=== PATIENT | female | born 1990 | race Caucasian/White ===

== ENCOUNTER 2017-05-20 00:50 | Inpatient (IN) | payer BC, MEDICAID ==
--- NOTE | 2017-05-20 02:14 | ER Document Report ---
ED Medical Screen (RME) - General Chief Complaint: Foot Pain Stated Complaint: FOOT RASH Time Seen by Provider: 05/20/17 02:10 Mode of Arrival: Ambulatory Information source: Patient Notes: 27-year-old female presented to ED for pain redness swelling to the right foot. She states she was seen Friday and diagnosed with a cellulitis to the right foot. She was sent home on . She states the redness swelling and pain has all increased since Friday. She states her blood sugars have been reading high since Friday. She has a small ulcer to the lateral fifth toe with erythema. She has erythema up to the knee. Pedal pulses are present. I have greeted and performed a rapid initial assessment of this patient. A comprehensive ED assessment and evaluation of the patient, analysis of test results and completion of medical decision making process will be conducted by an additional ED providers. TRAVEL OUTSIDE OF THE [place] IN LAST 30 DAYS: No
[2017-05-20 02:49] LABS: VENOUS BLOOD BASE EXCESS 1.9 mmol/L; VENOUS BLOOD HCO3 30.8 mmol/L (20-32); VENOUS BLOOD PH 7.26 (7.30-7.42)
[2017-05-20 02:50] LABS: ABSOLUTE BASOPHILS # (AUTO) 0.1 10^3/uL (0.0-0.2); ABSOLUTE EOSINOPHILS # (AUTO) 0.7 10^3/uL (0.0-0.6); ABSOLUTE LYMPHOCYTES (AUTO) 3.5 10^3/uL (0.5-4.7); ABSOLUTE MONOCYTES (AUTO) 0.7 10^3/uL (0.1-1.4); ABSOLUTE NEUT (AUTO) 4.4 10^3/uL (1.7-8.2); BASOPHILS % (AUTO) 0.7 % (0-2); EOSINOPHILS % (AUTO) 7.2 % (0-6); HEMATOCRIT 41.2 % (36.0-47.0); HEMOGLOBIN 13.7 g/dL (12.0-15.5); LYMPHOCYTES % (AUTO) 37.8 % (13-45); MEAN CORPUSCULAR HEMOGLOBIN 27.6 pg (27.0-33.4); MEAN CORPUSCULAR HGB CONC 33.2 g/dL (32.0-36.0); MEAN CORPUSCULAR VOLUME 83 fl (80-97); MONOCYTES % (AUTO) 7.2 % (3-13); PLATELET COUNT 361 10^3/uL (150-450); RED BLOOD COUNT 4.95 10^6/uL (3.72-5.28); RED CELL DISTRIBUTION WIDTH 13.1 % (11.5-14.0); SEGMENTED NEUTROPHILS % (AUTO) 47.1 % (42-78); TOTAL CELLS COUNTED % (AUTO) 100 %; WHITE BLOOD COUNT 9.3 10^3/uL (4.0-10.5)
[2017-05-20 03:14] LABS: ALANINE AMINOTRANSFERASE 34 U/L (9-52); ALBUMIN 4.3 g/dL (3.5-5.0); ALKALINE PHOSPHATASE 130 U/L (38-126); ANION GAP 14 (5-19); ASPARTATE AMINO TRANSFERASE 13 U/L (14-36); BILIRUBIN,DIRECT 0.2 mg/dL (0.0-0.4); BILIRUBIN,TOTAL 0.2 mg/dL (0.2-1.3); BLOOD UREA NITROGEN 15 mg/dL (7-20); CALCIUM 10.3 mg/dL (8.4-10.2); CARBON DIOXIDE 29 mmol/L (22-30); CHLORIDE 100 mmol/L (98-107); GLUCOSE 150 mg/dL (75-110); SODIUM 143.1 mmol/L (137-145); TOTAL PROTEIN 7.4 g/dL (6.3-8.2)
[2017-05-20 03:15] LABS: VENOUS BLOOD PCO2 69.7 mmHg (35-63)
--- NOTE | 2017-05-20 03:57 | RADIOLOGY REPORT (SQ) ---
EXAM DESCRIPTION: FOOT RIGHT COMPLETE CLINICAL HISTORY: ulcer to right 5th toe diabetic cellulitis COMPARISON: None. FINDINGS: 3 views of the right foot. No acute fracture or dislocation. Normal osseous mineralization. Small lytic lesion arising at the lateral aspect of the fifth distal phalanx. Mild soft tissue swelling. No subcutaneous air. IMPRESSION: 1. Possible lytic lesion arising at the lateral aspect of the fifth distal phalanx. This could be seen with osteomyelitis. Correlation with contrast-enhanced MRI could provide additional information.
[2017-05-20] MEDS ORDERED: MORPHINE SULFATE 10 MG/ML INJ IV ONE (04:06)
[2017-05-20] MEDS ORDERED: CLINDAMYCIN 900 MG/D5W RTU 50 ML IV ONE (04:06)
[2017-05-20] MEDS ORDERED: HYDROMORPHONE HCL INJ/PF 2 MG/ML AMPULE IV ONE (04:53)
--- NOTE | 2017-05-20 05:21 | ER Document Report ---
ED General - General Chief Complaint: Foot Pain Stated Complaint: FOOT RASH Time Seen by Provider: 05/20/17 02:10 Mode of Arrival: Ambulatory Information source: Patient Notes: 27-year-old female presents with complaints of foot swelling redness. Patient is a diabetic had a cut versus ulcer to the right foot fifth digit was seen at [facility] emergency department where she was placed on Bactrim 4 days ago, patient has been taking her medications as prescribed, notes that the swelling has since worsened. TRAVEL OUTSIDE OF THE [place] IN LAST 30 DAYS: No - HPI Onset: Other Onset/Duration: Persistent Quality of pain: Pressure Severity: Mild Pain Level: 2 Associated symptoms: Leg swelling Exacerbated by: Movement Relieved by: Denies Similar symptoms previously: Yes Recently seen / treated by doctor: Yes - Related Data Allergies/Adverse Reactions: No Known Allergies Allergy (Unverified 05/20/17 05:58) Past Medical History - General Information source: Patient - Social History Smoking Status: Current Every Day Smoker Cigarette use (# per day): Yes Chew tobacco use (# tins/day): No Smoking Education Provided: No Family History: Reviewed & Not Pertinent Review of Systems - Review of Systems Notes: REVIEW OF SYSTEMS: CONSTITUTIONAL : Denies fever, chills, or sweats. Denies recent illness. EENT: Denies eye, ear, throat, or mouth pain or symptoms. Denies nasal or sinus congestion or discharge. Denies throat, tongue, or mouth swelling or difficulty swallowing. CARDIOVASCULAR: Denies chest pain. Denies palpitations or racing or irregular heart beat. Denies ankle edema. RESPIRATORY: Denies cough, cold, or chest congestion. Denies shortness of breath, difficulty breathing, or wheezing. GASTROINTESTINAL: Denies abdominal pain or distention. Denies nausea, vomiting , or diarrhea. Denies blood in vomitus, stools, or per rectum. Denies black, tarry stools. Denies constipation. GENITOURINARY: Denies difficulty urinating, painful urination, burning, frequency, blood in urine, or discharge. FEMALE GENITOURINARY: Denies vaginal bleeding, heavy or abnormal periods, irregular periods. Denies vaginal discharge or odor. MUSCULOSKELETAL: Denies back or neck pain or stiffness. Denies joint pain or swelling. SKIN: Admits to redness of the foot HEMATOLOGIC : Denies easy bruising or bleeding. LYMPHATIC: Denies swollen, enlarged glands. NEUROLOGICAL: Denies confusion or altered mental status. Denies passing out or loss of consciousness. Denies dizziness or lightheadedness. Denies headache. Denies weakness or paralysis or loss of use of either side. Denies problems with gait or speech. Denies sensory loss, numbness, or tingling. Denies seizures. PSYCHIATRIC: Denies anxiety or stress. Denies depression, suicidal ideation, or homicidal ideation. ALL OTHER SYSTEMS REVIEWED AND NEGATIVE. PHYSICAL EXAMINATION: GENERAL: Well-appearing, well-nourished and in no acute distress. HEAD: Atraumatic, normocephalic. EYES: Pupils equal round and reactive to light, extraocular movements intact, conjunctiva are normal. ENT: Nares patent, oropharynx clear without exudates. Moist mucous membranes. NECK: Normal range of motion, supple without lymphadenopathy LUNGS: Breath sounds clear to auscultation bilaterally and equal. No wheezes rales or rhonchi. HEART: Regular rate and rhythm without murmurs ABDOMEN: Soft, nontender, nondistended abdomen. No guarding, no rebound. No masses appreciated. Female : deferred Musculoskeletal: Right foot edema NEUROLOGICAL: Cranial nerves grossly intact. Normal speech, normal gait. Normal sensory, motor exams PSYCH: Normal mood, normal affect. SKIN: Edema of the right foot with ulceration of the fifth digit dorsal aspect concerning for osteomyelitis, there is streaking as well as swelling to the mid neumann. There is an ingrown toenail on the first digit Dictation was performed using [employer] voice recognition software Physical Exam - Vital signs Vitals: Temp Pulse Resp BP Pulse Ox 97.6 F 113 H 12 135/81 H 97 05/20/17 00:54 05/20/17 00:54 05/20/17 00:54 05/20/17 00:54 05/20/17 00:54 Course - Re-evaluation Re-evalutation: 05/20/17 06:39 X-rays concerning for osteomyelitis, patient has had failed outpatient treatment and will require inpatient IV antibiotics and care Dr. Linaress was consulted for admission, he evaluated patient agrees with concerns for osteomyelitis, he will admit to his service antibiotics have been started he will consult medicine, I spoke with Dr. Roque regarding medical management - Vital Signs Vital signs: Temp Pulse Resp BP Pulse Ox 97.5 F 89 16 95/51 L 95 02/06/18 06:21 05/20/17 06:21 05/20/17 06:21 05/20/17 06:21 05/20/17 06:21 - Laboratory Result Diagrams: 05/20/17 02:30 05/20/17 02:30 Laboratory results interpreted by me: 05/20/17 05/20/17 05/20/17 02:30 02:30 02:30 Eosinophils % 7.2 H Absolute Eosinophils 0.7 H VBG pH 7.26 L VBG pCO2 69.7 H* Glucose 150 H Calcium 10.3 H AST 13 L Alkaline Phosphatase 130 H - Diagnostic Test Radiology reviewed: Image reviewed, Reports reviewed - Osteomyelitis Discharge - Discharge Clinical Impression: Cellulitis Qualifiers: Site of cellulitis: extremity Site of cellulitis of extremity: lower extremity Laterality: right Qualified Code(s): L03.115 - Cellulitis of right lower limb Osteomyelitis Qualifiers: Osteomyelitis type: unspecified type Osteomyelitis location: foot Laterality: right Qualified Code(s): M86.9 - Osteomyelitis, unspecified Condition: Stable Disposition: ADMITTED INPATIENT Admitting Provider: Surgicalist Unit Admitted: Medical Floor
[2017-05-20] MEDS ORDERED: DEXTROSE 50%-WATER 25 GM/50 ML DISP.SYRIN IV PRN ×2 (05:26)
[2017-05-20] MEDS ORDERED: GLUCAGON,HUMAN RECOMB 1 MG INJ IM PRN (05:26)
[2017-05-20] MEDS ORDERED: DEXTROSE 40% GEL 15 GM TUBE PO PRN ×2 (05:26)
--- NOTE | 2017-05-20 06:38 | CONSULTATION REPORT E ---
History and physical document NAME: RAGHAVENDRA PEREZ : 1990 AGE: 27Y DATE: 05/20/2017 ED20 A Patient seen in the consultation Dr. Owens. CHIEF COMPLAINT: Right foot infection. REPORT OF CONSULTATION: The patient is a 27-year-old white female with a several year history of diabetes mellitus, sees Dr. Slaughter in [facility], history of noncompliance, with a several month history of problems with her right foot. She has what she states is an ingrown toenail involving the right great toe; several weeks ago she noted swelling and redness to the right fifth toe. She was seen at an outpatient facility where she was assessed and found to have infection involving her right fifth toe and was started on Bactrim. Because of persistent swelling to her foot and leg, she was brought by the emergency department at [facility] where she was found to have cellulitis of the right foot and leg, with superficial wounds to the right fifth toe, and swelling of the right great toe. Surgery was consulted. The patient was advised admission. PAST MEDICAL HISTORY: Significant for: 1. Diabetes mellitus. 2. Smoking abuse. PAST SURIGCAL HISTORY: Significant for right humerus fracture ORIF, Ned Drake. ALLERGIES: None known. MEDICATIONS: Include insulin. FAMILY HISTORY: The patient does smoke; lives with mother and daughter. She is unemployed. REVIEW OF SYSTEMS: CONSTITUTIONAL: The patient denies. CARDIOVASCULAR: The patient denies. GASTROINTESTINAL: The patient denies. ADVERTISING INTERNSHIP: The patient denies. NEUROLOGIC: The patient does have peripheral neuropathy in her feet. PHYSICAL EXAMINATION: VITAL SIGNS: Stable. GENERAL: Patient in no acute distress. HEENT: Facial piercings. NECK: No adenopathy. LUNGS: Diminished in the bases bilaterally. HEART: Without murmur or gallop. ABDOMEN: Soft. No peritoneal signs. No rigidity. EXTREMITIES: Upper extremity is without deformity, grossly intact motor pineda. Lower extremity is examined, +2 edema on the right side. I cannot palpate pulses in the feet. The feet are warm. There is generalized splotchy erythema to the right lower extremity ankle and forefoot. Right great toe both medial and lateral aspects of the toenail there is some erythema. There are small skin breaks right at the nail plate. There is evidence of Betadine treatment creating a discoloration to the skin. The right fifth toe lateral aspect has chronic callus. It is dry. Range of motion of the toes appear preserved. LABORATORY PROFILE: CBC within normal limits. Electrolytes within normal limits except for blood sugar of 150, Alk phos of 130. Right foot x-rays 3 views performed. There is evidence of a possible lytic lesion to the distal right fifth middle phalanx. IMPRESSION: 1. Right foot cellulitis with early right great toe paronychia, low grade, and chronic diabetic right fifth toe ulcer, dry, with possible underlying osteomyelitis. 2. Uncontrolled noncompliant diabetes mellitus. 3. Smoker. RECOMMENDATIONS: Patient needs admission to the hospital, IV fluids, leg elevation, and consideration for MRI scan of the right lower extremity . We will consult internal medicine for assistance with diabetes management. DICTATING PHYSICIAN: NGA SANCHES M.D. [id number] PHY#: [id number] ID: [id number] JOB#: [id number] ACCT: [id number] cc:NGA SANCHES M.D. > MTDD
--- NOTE | 2017-05-20 13:50 | PDOC CONSULTATION ---
Consultation Consult Date: 05/20/17 Attending physician:: NGA SANCHES Consult reason:: Medical Management History of Present Illness Admission Date/PCP: 05/20/17 05:26 JAQUAN ALY DO Patient complains of: Right Great toe History of Present Illness: RAGHAVENDRA PEREZ is a 27 year old female presents to the ER with complaint of right great toe infection. Hospitalist team was contacted for consult of DM Type 1 management. Pt stats that she is doing ok. Pt states that her right toe redness for been present for several weeks. Pt states that it has not gotten better. Pt states that she Carb counts prior to administering insulin and placed on Lantus. Past Medical History Cardiac Medical History: Reports: None Pulmonary Medical History: Reports: None EENT Medical History: Reports: None Neurological Medical History: Reports: None Endocrine Medical History: Reports: Diabetes Mellitus Type 1 Renal/ Medical History: Reports: None Malignancy Medical History: Reports: None GI Medical History: Reports: None Musculoskeltal Medical History: Reports: None Skin Medical History: Reports: None Psychiatric Medical History: Denies: Depression Traumatic Medical History: Reports: None Hematology: Reports: None Infectious Medical History: Reports: None Past Surgical History Past Surgical History: Reports: Other - Surgery on Right arm due to Fracture. Social History Smoking Status: Current Every Day Smoker Cigarettes Packs Per Day: 1 Frequency of Alcohol Use: None Hx Recreational Drug Use: Yes - quit 2012 Drugs: Other Hx Prescription Drug Abuse: No - Advance Directive Resuscitation Status: Full Code Family History Family History: DM Parental Family History Reviewed: Yes Children Family History Reviewed: Yes Sibling(s) Family History Reviewed.: Yes Medication/Allergy Home Medications: Insulin Aspart [Novolog Insulin (Aspart) 100 unit/mL] See Protocol SQ MEALS 09/29 Insulin Glargine,Hum.rec.anlog [Lantus Insulin 100 Unit/1 ml 10 ml] 36 units SQ QHS 05/20/17 Allergies/Adverse Reactions: No Known Allergies Allergy (Unverified 05/20/17 05:58) Review of Systems Constitutional: ABSENT: chills, fever(s), headache(s), weight gain, weight loss Eyes: ABSENT: visual disturbances Ears: ABSENT: hearing changes Cardiovascular: ABSENT: chest pain, dyspnea on exertion, edema, orthropnea, palpitations Genitourinary: ABSENT: dysuria, hematuria Musculoskeletal: ABSENT: joint swelling Integumentary: PRESENT: other - Right great toe erythema Neurological: ABSENT: abnormal gait, abnormal speech, confusion, dizziness, focal weakness, syncope Psychiatric: ABSENT: anxiety, depression, homidical ideation, suicidal ideation Endocrine: ABSENT: cold intolerance, heat intolerance, polydipsia, polyuria Hematologic/Lymphatic: ABSENT: easy bleeding, easy bruising Physical Exam Vital Signs: Temp Pulse Resp BP Pulse Ox 97.9 F 88 15 99/53 L 96 05/20/17 11:31 05/20/17 11:31 05/20/17 11:31 05/20/17 11:31 05/20/17 11:31 Intake & Output 05/19/17 05/20/17 05/21/17 06:59 06:59 06:59 Weight 68.1 kg General appearance: PRESENT: no acute distress, well-developed, well-nourished Head exam: PRESENT: atraumatic, normocephalic Eye exam: PRESENT: conjunctiva pink, EOMI Ear exam: PRESENT: normal external ear exam Mouth exam: PRESENT: moist, tongue midline Neck exam: ABSENT: carotid bruit, JVD, lymphadenopathy, thyromegaly Respiratory exam: PRESENT: clear to auscultation jey. ABSENT: rales, rhonchi, wheezes Cardiovascular exam: PRESENT: RRR. ABSENT: diastolic murmur, rubs, systolic murmur Pulses: PRESENT: normal dorsalis pedis pul Vascular exam: PRESENT: normal capillary refill GI/Abdominal exam: PRESENT: normal bowel sounds, soft. ABSENT: distended, guarding, mass, organolmegaly, rebound, tenderness Rectal exam: PRESENT: deferred Extremities exam: PRESENT: full ROM. ABSENT: calf tenderness, clubbing, pedal edema Neurological exam: PRESENT: alert, awake, oriented to person, oriented to place , oriented to time, oriented to situation, CN II-XII grossly intact. ABSENT: motor sensory deficit Psychiatric exam: PRESENT: appropriate affect, normal mood. ABSENT: homicidal ideation, suicidal ideation Skin exam: PRESENT: other - right great toe erythema no purulent drainage noted. Results Impressions: Foot X-Ray 05/20/17 02:10 IMPRESSION: 1. Possible lytic lesion arising at the lateral aspect of the fifth distal phalanx. This could be seen with osteomyelitis. Correlation with contrast-enhanced MRI could provide additional information. Assessment & Plan - Diagnosis (1) Paronychia Is this a current diagnosis for this admission?: Yes Plan: Right Great Toe: Agree with Clindamycin. Per Surgery (2) Tobacco dependence Is this a current diagnosis for this admission?: Yes Plan: Encourage discontinuation of tobacco products. (3) Cellulitis Qualifiers: Site of cellulitis: extremity Site of cellulitis of extremity: lower extremity Laterality: right Qualified Code(s): L03.115 - Cellulitis of right lower limb Is this a current diagnosis for this admission?: Yes Plan: Right Great Toe: Continue Clindamycin. (4) DM type 1 (diabetes mellitus, type 1) Is this a current diagnosis for this admission?: Yes Plan: Will check HBG A1C. Will continue SSI and Lantus. Accucheck Qmeals. (5) DVT prophylaxis Is this a current diagnosis for this admission?: Yes Plan: SCDs - Time Time Spent: 30 to 50 Minutes Anticipated discharge: Home
[2017-05-20] MEDS: CLINDAMYCIN 600 MG/D5W RTU 600 MG/50 ML RTUPB IV SCH ×2 (14:06→21:47)
[2017-05-20] MEDS: INSULIN REG, HUMAN 100 UNIT/ML 3 ML VIAL (PYX) SUBCUT PRN ×2 (14:06→18:02)
[2017-05-20] MEDS: NORMAL SALINE 1000 ML 1,000 ML IV PRN ×2 (14:06→23:25)
[2017-05-20 16:34] LABS: APPEARANCE,URINE SLIGHTLY-CLOUDY; BILIRUBIN,URINE NEGATIVE (NEGATIVE); COLOR,URINE YELLOW; GLUCOSE, URINE >=500 mg/dL (NEGATIVE); KETONES,URINE NEGATIVE (NEGATIVE); LEUKOCYTE ESTERASE,URINE TRACE (NEGATIVE); NITRITE,URINE NEGATIVE (NEGATIVE); PROTEIN,URINE NEGATIVE (NEGATIVE); URINE SPECIFIC GRAVITY 1.018; UROBILINOGEN,URINE NEGATIVE mg/dL (<2.0)
--- NOTE | 2017-05-20 20:04 | RADIOLOGY REPORT (SQ) ---
EXAM DESCRIPTION: MRI RT LOWER EXTREMITY WITHOUT COMPLETED DATE/TIME: 05/20/2017 7:50 pm REASON FOR STUDY: r/o osteo right fifth toe COMPARISON: Plain radiograph TECHNIQUE: Multiplanar imaging of the right foot to include fat and fluid sensitive sequences. LIMITATIONS: None. FINDINGS: BONE MARROW: Marrow signal alteration of the distal phalanx of the 5th digit which is a co njoined middle and distal phalanx. Cortical disruption laterally. SOFT TISSUES: No abscess. Generalize dorsal soft tissue swelling. OTHER: No other significant finding. IMPRESSION: Osteomyelitis of the distal phalanx of the 5th digit which is a conjoined middle and dis almas phalanx. No soft tissue abscess. TECHNICAL DOCUMENTATION: JOB ID: [id number] [employer]- All Rights Reserved
[2017-05-20] MEDS: INSULIN GLARGINE,HUM.REC.ANLOG 300 UNIT/3 ML INSULN.PEN SUBCUT SCH (21:47)
[2017-05-21] MEDS: CLINDAMYCIN 600 MG/D5W RTU 600 MG/50 ML RTUPB IV SCH ×2 (05:32→13:33)
[2017-05-21 07:26] LABS: ABSOLUTE BASOPHILS # (AUTO) 0.1 10^3/uL (0.0-0.2); ABSOLUTE EOSINOPHILS # (AUTO) 0.5 10^3/uL (0.0-0.6); ABSOLUTE LYMPHOCYTES (AUTO) 2.9 10^3/uL (0.5-4.7); ABSOLUTE MONOCYTES (AUTO) 0.7 10^3/uL (0.1-1.4); ABSOLUTE NEUT (AUTO) 3.5 10^3/uL (1.7-8.2); BASOPHILS % (AUTO) 0.8 % (0-2); EOSINOPHILS % (AUTO) 6.7 % (0-6); HEMATOCRIT 36.3 % (36.0-47.0); HEMOGLOBIN 12.2 g/dL (12.0-15.5); LYMPHOCYTES % (AUTO) 37.5 % (13-45); MEAN CORPUSCULAR HEMOGLOBIN 27.7 pg (27.0-33.4); MEAN CORPUSCULAR HGB CONC 33.6 g/dL (32.0-36.0); MEAN CORPUSCULAR VOLUME 83 fl (80-97); MONOCYTES % (AUTO) 9.5 % (3-13); PLATELET COUNT 303 10^3/uL (150-450); RED BLOOD COUNT 4.39 10^6/uL (3.72-5.28); SEGMENTED NEUTROPHILS % (AUTO) 45.5 % (42-78); TOTAL CELLS COUNTED % (AUTO) 100 %; WHITE BLOOD COUNT 7.8 10^3/uL (4.0-10.5)
[2017-05-21 07:31] LABS: ALANINE AMINOTRANSFERASE 22 U/L (9-52); ALBUMIN 2.8 g/dL (3.5-5.0); ALKALINE PHOSPHATASE 87 U/L (38-126); ANION GAP 9 (5-19); ASPARTATE AMINO TRANSFERASE 13 U/L (14-36); BILIRUBIN,DIRECT 0.1 mg/dL (0.0-0.4); BILIRUBIN,TOTAL 0.1 mg/dL (0.2-1.3); BLOOD UREA NITROGEN 13 mg/dL (7-20); CALCIUM 8.9 mg/dL (8.4-10.2); CARBON DIOXIDE 24 mmol/L (22-30); CHLORIDE 107 mmol/L (98-107); GLUCOSE 108 mg/dL (75-110); POTASSIUM 4.3 mmol/L (3.6-5.0); SODIUM 139.8 mmol/L (137-145); TOTAL PROTEIN 5.3 g/dL (6.3-8.2)
[2017-05-21 10:33] LABS: APPEARANCE,URINE CLEAR; BILIRUBIN,URINE NEGATIVE (NEGATIVE); COLOR,URINE STRAW; GLUCOSE, URINE NEGATIVE (NEGATIVE); KETONES,URINE NEGATIVE (NEGATIVE); LEUKOCYTE ESTERASE,URINE MODERATE (NEGATIVE); NITRITE,URINE NEGATIVE (NEGATIVE); PROTEIN,URINE NEGATIVE (NEGATIVE); URINE SPECIFIC GRAVITY 1.006; UROBILINOGEN,URINE NEGATIVE mg/dL (<2.0)
--- NOTE | 2017-05-21 11:14 | PDOC PROGRESS REPORT ---
Subjective Progress Note for:: 05/21/17 Subjective:: Patient seen earlier this morning who states that her foot swelling has improved. Nurse says that patient has not complained much of pain. Reason For Visit: RIGHT FOOT CELLULITIS, POSSIBLE OSTEO. RIGHT FIFTH Physical Exam Vital Signs: Temp Pulse Resp BP Pulse Ox 98.4 F 89 15 109/60 97 05/21/17 08:16 05/21/17 08:16 05/21/17 08:16 05/21/17 08:16 05/21/17 08:16 Intake & Output 05/20/17 05/21/17 05/22/17 06:59 06:59 06:59 Intake Total 4402 Output Total 1800 Balance 2602 Weight 68.1 kg 63.1 kg General appearance: PRESENT: no acute distress, well-developed, well-nourished Head exam: PRESENT: atraumatic, normocephalic Eye exam: PRESENT: conjunctiva pink, EOMI. ABSENT: scleral icterus Ear exam: PRESENT: normal external ear exam Mouth exam: PRESENT: moist, tongue midline Neck exam: ABSENT: carotid bruit, JVD, lymphadenopathy, thyromegaly Respiratory exam: PRESENT: accessory muscle use Cardiovascular exam: PRESENT: RRR. ABSENT: diastolic murmur, rubs, systolic murmur Pulses: PRESENT: normal dorsalis pedis pul Vascular exam: PRESENT: normal capillary refill GI/Abdominal exam: PRESENT: normal bowel sounds, soft. ABSENT: distended, guarding, mass, organolmegaly, rebound, tenderness Rectal exam: PRESENT: deferred Extremities exam: PRESENT: full ROM, other - Right foot to the ankle with swelling and mild erythema improving. ABSENT: calf tenderness, clubbing, pedal edema Neurological exam: PRESENT: alert, awake, oriented to person, oriented to place , oriented to time, oriented to situation, CN II-XII grossly intact. ABSENT: motor sensory deficit Psychiatric exam: PRESENT: appropriate affect, normal mood. ABSENT: homicidal ideation, suicidal ideation Skin exam: PRESENT: dry, intact, warm. ABSENT: cyanosis, rash Results Laboratory Results: 05/21/17 06:36 05/21/17 06:36 05/20/17 05/21/17 05/21/17 15:30 06:36 06:36 WBC 7.8 RBC 4.39 Hgb 12.2 Hct 36.3 MCV 83 MCH 27.7 MCHC 33.6 RDW 13.0 Plt Count 303 Seg Neutrophils % 45.5 Lymphocytes % 37.5 Monocytes % 9.5 Eosinophils % 6.7 H Basophils % 0.8 Absolute Neutrophils 3.5 Absolute Lymphocytes 2.9 Absolute Monocytes 0.7 Absolute Eosinophils 0.5 Absolute Basophils 0.1 Sodium 139.8 Potassium 4.3 Chloride 107 Carbon Dioxide 24 Anion Gap 9 BUN 13 Creatinine 0.55 Est GFR ( Amer) > 60 Est GFR (Non-Af Amer) > 60 Glucose 108 Calcium 8.9 Total Bilirubin 0.1 L AST 13 L ALT 22 Alkaline Phosphatase 87 Total Protein 5.3 L Albumin 2.8 L Urine Color YELLOW Urine Appearance SLIGHTLY-CLOUDY Urine pH 5.0 Ur Specific [place] 1.018 Urine Protein NEGATIVE Urine Glucose (UA) >=500 H Urine Ketones NEGATIVE Urine Blood NEGATIVE Urine Nitrite NEGATIVE Ur Leukocyte Esterase TRACE H Urine WBC (Auto) 5 Urine RBC (Auto) 2 05/21/17 10:15 WBC RBC Hgb Hct MCV MCH MCHC RDW Plt Count Seg Neutrophils % Lymphocytes % Monocytes % Eosinophils % Basophils % Absolute Neutrophils Absolute Lymphocytes Absolute Monocytes Absolute Eosinophils Absolute Basophils Sodium Potassium Chloride Carbon Dioxide Anion Gap BUN Creatinine Est GFR ( Amer) Est GFR (Non-Af Amer) Glucose Calcium Total Bilirubin AST ALT Alkaline Phosphatase Total Protein Albumin Urine Color STRAW Urine Appearance CLEAR Urine pH 5.0 Ur Specific [place] 1.006 Urine Protein NEGATIVE Urine Glucose (UA) NEGATIVE Urine Ketones NEGATIVE Urine Blood NEGATIVE Urine Nitrite NEGATIVE Ur Leukocyte Esterase MODERATE H Urine WBC (Auto) Urine RBC (Auto) Impressions: Lower Extremity MRI 05/20/17 00:00 IMPRESSION: Osteomyelitis of the distal phalanx of the 5th digit which is a conjoined middle and distal phalanx. No soft tissue abscess. Foot X-Ray 05/20/17 02:10 IMPRESSION: 1. Possible lytic lesion arising at the lateral aspect of the fifth distal phalanx. This could be seen with osteomyelitis. Correlation with contrast-enhanced MRI could provide additional information. Assessment & Plan - Diagnosis (1) Osteomyelitis Qualifiers: Osteomyelitis type: unspecified type Osteomyelitis location: foot Laterality: right Qualified Code(s): M86.9 - Osteomyelitis, unspecified Is this a current diagnosis for this admission?: Yes Plan: Patient with evidence on MRI of osteo-of the distal phalanx of the fifth digit. Patient is currently on antibiotics. Once blood cultures have been negative for 48 hours will have PICC line placed for IV antibiotics if surgery is recommending continuation with IV antibiotics.. Will wait to see what surgery recommends. Unaware if surgery is planning to do a bone biopsy. Patient is currently responding to clindamycin IV (2) Paronychia Is this a current diagnosis for this admission?: Yes Plan: Right Great Toe: Agree with Clindamycin. Per Surgery (3) Tobacco dependence Is this a current diagnosis for this admission?: Yes Plan: Encourage discontinuation of tobacco products. (4) Cellulitis Qualifiers: Site of cellulitis: extremity Site of cellulitis of extremity: lower extremity Laterality: right Qualified Code(s): L03.115 - Cellulitis of right lower limb Is this a current diagnosis for this admission?: Yes Plan: Right Great Toe: Resolving. Continue Clindamycin. (5) DM type 1 (diabetes mellitus, type 1) Is this a current diagnosis for this admission?: Yes Plan: HBG A1C 13.2. Will continue SSI and Lantus. Accucheck Qmeals. (6) DVT prophylaxis Is this a current diagnosis for this admission?: Yes Plan: SCDs - Time Time Spent with patient: 15-24 minutes
[2017-05-21 12:48] LABS: URINE BARBITURATES SCREEN NEGATIVE; URINE BENZODIAZEPINES SCREEN NEGATIVE; URINE COCAINE SCREEN NEGATIVE; URINE MARIJUANA (THC) SCREEN NEGATIVE; URINE METHADONE SCREEN NEGATIVE; URINE PHENCYCLIDINE SCREEN NEGATIVE
[2017-05-21] MEDS: INSULIN REG, HUMAN 100 UNIT/ML 3 ML VIAL (PYX) SUBCUT PRN ×2 (13:33→18:56)
[2017-05-21] MEDS: ACETAMINOPHEN 325 MG TABLET PO PRN (13:34)
[2017-05-21] MEDS: NORMAL SALINE 1000 ML 1,000 ML IV PRN (13:39)
--- NOTE | 2017-05-21 14:10 | PDOC PROGRESS REPORT ---
Subjective Progress Note for:: 05/21/17 Subjective:: No subjective fresh complaints. MRI shows osteomyelitis of the right 5th distal phalanx. Reason For Visit: RIGHT FOOT CELLULITIS, POSSIBLE OSTEO. RIGHT FIFTH Physical Exam Vital Signs: Temp Pulse Resp BP Pulse Ox 98.5 F 94 14 116/65 96 05/21/17 12:00 05/21/17 12:00 05/21/17 12:00 05/21/17 12:00 05/21/17 12:00 Intake & Output 05/20/17 05/21/17 05/22/17 06:59 06:59 06:59 Intake Total 4402 Output Total 1800 Balance 2602 Weight 68.1 kg 63.1 kg General appearance: PRESENT: no acute distress Head exam: PRESENT: atraumatic, normocephalic Eye exam: PRESENT: conjunctiva pink, EOMI, PERRLA. ABSENT: scleral icterus Ear exam: PRESENT: normal external ear exam Neck exam: ABSENT: carotid bruit, JVD, lymphadenopathy, thyromegaly Respiratory exam: PRESENT: clear to auscultation jey. ABSENT: rales, rhonchi, wheezes Cardiovascular exam: PRESENT: RRR. ABSENT: diastolic murmur, rubs, systolic murmur Pulses: PRESENT: +2 pedal pulses bilateral GI/Abdominal exam: PRESENT: normal bowel sounds, soft. ABSENT: distended, guarding, mass, organolmegaly, rebound, tenderness Extremities exam: PRESENT: other - Right leg and foot with some edema; erythema over the anterior aspect of the leg to the midleg and dorsum of the foot - area is marked out with a marker. There is an area of callus over the lateral aspect of the 5th toe; no drainage, no open ulcers. Neurological exam: PRESENT: alert, awake, oriented to person, oriented to place , oriented to time, oriented to situation, CN II-XII grossly intact Skin exam: PRESENT: other - Right leg and foot with some edema; erythema over the anterior aspect of the leg to the midleg and dorsum of the foot - area is marked out with a marker. There is an area of callus over the lateral aspect of the 5th toe; no drainage, no open ulcers. Results Laboratory Results: 05/21/17 06:36 05/21/17 06:36 05/20/17 05/21/17 05/21/17 15:30 06:36 06:36 WBC 7.8 RBC 4.39 Hgb 12.2 Hct 36.3 MCV 83 MCH 27.7 MCHC 33.6 RDW 13.0 Plt Count 303 Seg Neutrophils % 45.5 Lymphocytes % 37.5 Monocytes % 9.5 Eosinophils % 6.7 H Basophils % 0.8 Absolute Neutrophils 3.5 Absolute Lymphocytes 2.9 Absolute Monocytes 0.7 Absolute Eosinophils 0.5 Absolute Basophils 0.1 Sodium 139.8 Potassium 4.3 Chloride 107 Carbon Dioxide 24 Anion Gap 9 BUN 13 Creatinine 0.55 Est GFR ( Amer) > 60 Est GFR (Non-Af Amer) > 60 Glucose 108 Calcium 8.9 Total Bilirubin 0.1 L AST 13 L ALT 22 Alkaline Phosphatase 87 Total Protein 5.3 L Albumin 2.8 L Urine Color YELLOW Urine Appearance SLIGHTLY-CLOUDY Urine pH 5.0 Ur Specific [place] 1.018 Urine Protein NEGATIVE Urine Glucose (UA) >=500 H Urine Ketones NEGATIVE Urine Blood NEGATIVE Urine Nitrite NEGATIVE Ur Leukocyte Esterase TRACE H Urine WBC (Auto) 5 Urine RBC (Auto) 2 05/21/17 10:15 WBC RBC Hgb Hct MCV MCH MCHC RDW Plt Count Seg Neutrophils % Lymphocytes % Monocytes % Eosinophils % Basophils % Absolute Neutrophils Absolute Lymphocytes Absolute Monocytes Absolute Eosinophils Absolute Basophils Sodium Potassium Chloride Carbon Dioxide Anion Gap BUN Creatinine Est GFR ( Amer) Est GFR (Non-Af Amer) Glucose Calcium Total Bilirubin AST ALT Alkaline Phosphatase Total Protein Albumin Urine Color STRAW Urine Appearance CLEAR Urine pH 5.0 Ur Specific [place] 1.006 Urine Protein NEGATIVE Urine Glucose (UA) NEGATIVE Urine Ketones NEGATIVE Urine Blood NEGATIVE Urine Nitrite NEGATIVE Ur Leukocyte Esterase MODERATE H Urine WBC (Auto) Urine RBC (Auto) Impressions: Lower Extremity MRI 05/20/17 00:00 IMPRESSION: Osteomyelitis of the distal phalanx of the 5th digit which is a conjoined middle and distal phalanx. No soft tissue abscess. Foot X-Ray 05/20/17 02:10 IMPRESSION: 1. Possible lytic lesion arising at the lateral aspect of the fifth distal phalanx. This could be seen with osteomyelitis. Correlation with contrast-enhanced MRI could provide additional information. Assessment & Plan - Diagnosis (1) Cellulitis of right anterior lower leg Is this a current diagnosis for this admission?: Yes (2) Cellulitis of right foot Is this a current diagnosis for this admission?: Yes (3) Osteomyelitis of toe of right foot Is this a current diagnosis for this admission?: Yes (4) DM type 1 (diabetes mellitus, type 1) Is this a current diagnosis for this admission?: Yes - Time Time Spent with patient: 25-34 minutes Total Critical Time (Minutes): 25 Medications reviewed and adjusted accordingly: Yes Anticipated discharge: Home with Homehealth - Plan Summary Plan Summary: Right leg and foot with some edema; erythema over the anterior aspect of the leg to the midleg and dorsum of the foot - area is marked out with a marker. There is an area of callus over the lateral aspect of the 5th toe; no drainage, no open ulcers.
[2017-05-21] MEDS ORDERED: NORMAL SALINE 10 ML SDV (AFTER EACH USE) IV PRN (15:40)
--- NOTE | 2017-05-21 15:40 | RADIOLOGY REPORT (SQ) ---
EXAM DESCRIPTION: PICC INSERTION; GUIDANCE FLUOROSCOPIC COMPLETED DATE/TIME: 05/21/2017 3:23 pm REASON FOR STUDY: NEED FOR VASCULAR ACCESS COMPARISON: None. FLUOROSCOPY TIME: 0.4 MINUTES 1 series of digital images saved to PACS. TECHNIQUE: Intra-operative images acquired during surgical procedure to evaluate progress. NUMBER OF IMAGES: One series of digital images LIMITATIONS: None. FINDINGS: Intra procedural imaging and there is left-sided PICC placement by Dr Snider IMPRESSION: Intra procedural imaging and fluoro COMMENT: Quality ID [id number]: Final reports for procedures using fluoroscopy that document radiation exp osure indices, or exposure time and number of fluorographic images (if radiation exposure indices are not available) Please consult full operative report of the attending physician for description of the procedure. TECHNICAL DOCUMENTATION: JOB ID: [id number] [employer]- All Rights Reserved
--- NOTE | 2017-05-21 15:40 | RADIOLOGY REPORT (SQ) ---
EXAM DESCRIPTION: PICC INSERTION; GUIDANCE FLUOROSCOPIC COMPLETED DATE/TIME: 05/21/2017 3:23 pm REASON FOR STUDY: NEED FOR VASCULAR ACCESS COMPARISON: None. FLUOROSCOPY TIME: 0.4 MINUTES 1 series of digital images saved to PACS. TECHNIQUE: Intra-operative images acquired during surgical procedure to evaluate progress. NUMBER OF IMAGES: One series of digital images LIMITATIONS: None. FINDINGS: Intra procedural imaging and there is left-sided PICC placement by Dr Snider IMPRESSION: Intra procedural imaging and fluoro COMMENT: Quality ID [id number]: Final reports for procedures using fluoroscopy that document radiation exp osure indices, or exposure time and number of fluorographic images (if radiation exposure indices are not available) Please consult full operative report of the attending physician for description of the procedure. TECHNICAL DOCUMENTATION: JOB ID: [id number] [employer]- All Rights Reserved
--- NOTE | 2017-05-21 15:44 | Operative Report ---
Operative Report DATE OF SURGERY: 05/21/17 PREOPERATIVE DIAGNOSIS: Osteomyelitis of the distal phalanx of the right fifth toe POSTOPERATIVE DIAGNOSIS: Osteomyelitis of the distal phalanx of the right fifth toe OPERATION: Left basilic vein 5Fr dual lumen Power PICC (peripherally inserted central catheter) insertion. Real-time ultrasound guidance. Fluoroscopic supervision. SURGEON: Marcos Mae ANESTHESIA: Local TISSUE REMOVED OR ALTERED: none COMPLICATIONS: none ESTIMATED BLOOD LOSS: <5ml INTRAOPERATIVE FINDINGS: patent left basilic - axillary - sublavian veins PROCEDURE: The procedure was done in the laborer shaft sinking. The patient was positioned supine on the fluoro table with the left arm placed on an armboard. The left arm was prepped with chloraprep and sterile draped laid to expose the anterior, medial and lateral aspects of the arm from the elbow to the shoulder. A time out was done. Under sterile aseptic conditions, using real-time ultrasound guidance, the left basilic vein was localised and accessed with a 5Fr microvenous puncture needle, a guidewire was passed through the needle into the vein and the needle exchanged for a 5Fr sheath. The microvenous guidewire was removed and a 55cm length guidewire threaded through the sheath into the superior vena cava. The microvenous sheath was removed and a 5Fr peel-away sheath-dilator combo was threaded over the guidewire into the vein removing the guidewire and locking the sheath with a saline lock. The PIC catheter was measured and cut to the desired length of 45cm. It was then inserted through the peel-away sheath and threaded into the superior vena cava. a 1 cm length was left exteriorized on the skin. Both lumina of the catheter were freely aspirated and flushed with saline. The catheter was anchored to the skin and dressed with biopatch and tegaderm. The patient tolerated the procedure well. The catheter can be used.
[2017-05-21] MEDS ORDERED: VANCOMYCIN HCL INJ 1000 MG VIAL IV SCH (16:00)
[2017-05-21] MEDS: LEVOFLOXACIN 750 MG/D5W RTU 750 MG/150 ML RTUPB IV SCH (17:36)
[2017-05-21] MEDS: VANCOMYCIN HCL 1,000 MG in DEXTROSE 5%-WATER 250 ML IV SCH (21:12)
[2017-05-21] MEDS: INSULIN GLARGINE,HUM.REC.ANLOG 300 UNIT/3 ML INSULN.PEN SUBCUT SCH (21:40)
[2017-05-21] MEDS: NORMAL SALINE 10 ML SDV (SCHEDULED) IV SCH (23:05)
[2017-05-22] MEDS: VANCOMYCIN HCL 1,000 MG in DEXTROSE 5%-WATER 250 ML IV SCH ×3 (01:39→22:38)
[2017-05-22] MEDS: INSULIN REG, HUMAN 100 UNIT/ML 3 ML VIAL (PYX) SUBCUT PRN ×5 (02:25→18:18)
[2017-05-22] MEDS: NORMAL SALINE 1000 ML 1,000 ML IV PRN ×2 (08:32→18:16)
[2017-05-22] MEDS: NORMAL SALINE 10 ML SDV (SCHEDULED) IV SCH ×2 (10:13→22:09)
--- NOTE | 2017-05-22 10:38 | PDOC PROGRESS REPORT ---
Subjective Progress Note for:: 05/22/17 Subjective:: No complaints Reason For Visit: RIGHT FOOT CELLULITIS, POSSIBLE OSTEO. RIGHT FIFTH Physical Exam Vital Signs: Temp Pulse Resp BP Pulse Ox 98.0 F 78 18 108/66 95 05/22/17 08:24 05/22/17 08:24 05/22/17 08:24 05/22/17 08:24 05/22/17 08:24 Intake & Output 05/21/17 05/22/17 05/23/17 06:59 06:59 06:59 Intake Total 4402 1795 Output Total 1800 2000 Balance 2602 -205 Weight 63.1 kg 63 kg Extremities exam: PRESENT: other - Foot with mild diffuse edema. Regressing erythema from the marked lines. Clean scab on her fifth toe. No blistering. No crepitus. Results Laboratory Results: 05/21/17 06:36 05/21/17 06:36 05/21/17 10:15 Urine Color STRAW Urine Appearance CLEAR Urine pH 5.0 Ur Specific [place] 1.006 Urine Protein NEGATIVE Urine Glucose (UA) NEGATIVE Urine Ketones NEGATIVE Urine Blood NEGATIVE Urine Nitrite NEGATIVE Ur Leukocyte Esterase MODERATE H Impressions: Lower Extremity MRI 05/20/17 00:00 IMPRESSION: Osteomyelitis of the distal phalanx of the 5th digit which is a conjoined middle and distal phalanx. No soft tissue abscess. Foot X-Ray 05/20/17 02:10 IMPRESSION: 1. Possible lytic lesion arising at the lateral aspect of the fifth distal phalanx. This could be seen with osteomyelitis. Correlation with contrast-enhanced MRI could provide additional information. Guidance Fluoroscopy 05/21/17 00:00 IMPRESSION: Intra procedural imaging and fluoro PICC Line Insertion 05/21/17 00:00 IMPRESSION: Intra procedural imaging and fluoro Assessment & Plan - Diagnosis (1) Cellulitis of right foot Is this a current diagnosis for this admission?: Yes Plan: Improving slowly on IV antibiotics. Pending discharge planning for at home IV antibiotics.
--- NOTE | 2017-05-22 12:07 | PDOC PROGRESS REPORT ---
Subjective Progress Note for:: 05/22/17 Subjective:: Pt states that swelling and pain in foot is improving. Reason For Visit: RIGHT FOOT CELLULITIS, POSSIBLE OSTEO. RIGHT FIFTH Physical Exam Vital Signs: Temp Pulse Resp BP Pulse Ox 98.0 F 78 18 108/66 95 05/22/17 08:24 05/22/17 08:24 05/22/17 08:24 05/22/17 08:24 05/22/17 08:24 Intake & Output 05/21/17 05/22/17 05/23/17 06:59 06:59 06:59 Intake Total 4402 1795 Output Total 1800 1999 Balance 2602 -205 Weight 63.1 kg 63 kg General appearance: PRESENT: no acute distress, well-developed, well-nourished Head exam: PRESENT: atraumatic, normocephalic Eye exam: PRESENT: conjunctiva pink, EOMI. ABSENT: scleral icterus Ear exam: PRESENT: normal external ear exam Mouth exam: PRESENT: moist, tongue midline Neck exam: ABSENT: carotid bruit, JVD, lymphadenopathy, thyromegaly Respiratory exam: PRESENT: clear to auscultation jey. ABSENT: rales, rhonchi, wheezes Cardiovascular exam: PRESENT: RRR. ABSENT: diastolic murmur, rubs, systolic murmur Pulses: PRESENT: normal dorsalis pedis pul Vascular exam: PRESENT: normal capillary refill GI/Abdominal exam: PRESENT: normal bowel sounds, soft. ABSENT: distended, guarding, mass, organolmegaly, rebound, tenderness Rectal exam: PRESENT: deferred Extremities exam: PRESENT: other - Right lower extremity erythema and swelling has greatly improved. Musculoskeletal exam: PRESENT: full ROM Neurological exam: PRESENT: alert, awake, oriented to person, oriented to place , oriented to time, oriented to situation, CN II-XII grossly intact. ABSENT: motor sensory deficit Psychiatric exam: PRESENT: appropriate affect, normal mood. ABSENT: homicidal ideation, suicidal ideation Skin exam: PRESENT: dry, intact, warm, other - Right lower extremity erythema and swelling has improved.. ABSENT: cyanosis, rash Results Laboratory Results: 05/21/17 06:36 05/21/17 06:36 Impressions: Lower Extremity MRI 05/20/17 00:00 IMPRESSION: Osteomyelitis of the distal phalanx of the 5th digit which is a conjoined middle and distal phalanx. No soft tissue abscess. Foot X-Ray 05/20/17 02:10 IMPRESSION: 1. Possible lytic lesion arising at the lateral aspect of the fifth distal phalanx. This could be seen with osteomyelitis. Correlation with contrast-enhanced MRI could provide additional information. Guidance Fluoroscopy 05/21/17 00:00 IMPRESSION: Intra procedural imaging and fluoro PICC Line Insertion 05/21/17 00:00 IMPRESSION: Intra procedural imaging and fluoro Assessment & Plan - Diagnosis (1) Osteomyelitis Qualifiers: Osteomyelitis type: unspecified type Osteomyelitis location: foot Laterality: right Qualified Code(s): M86.9 - Osteomyelitis, unspecified Is this a current diagnosis for this admission?: Yes Plan: Patient with evidence on MRI of osteo-of the distal phalanx of the fifth digit. Vancomycin and Levaquin. (2) Paronychia Is this a current diagnosis for this admission?: Yes Plan: Right Great Toe: Surgery change patient's antibiotics from clindamycin which patient was responding to to vancomycin and Levaquin. Surgery is managing antibiotic selection and duration of treatment (3) Tobacco dependence Is this a current diagnosis for this admission?: Yes Plan: Encourage discontinuation of tobacco products. (4) Cellulitis Qualifiers: Site of cellulitis: extremity Site of cellulitis of extremity: lower extremity Laterality: right Qualified Code(s): L03.115 - Cellulitis of right lower limb Is this a current diagnosis for this admission?: Yes Plan: Right Great Toe: Patient currently placed on vancomycin and Levaquin. Patient however was responded to clindamycin. Patient's antibiotic treatment plan will is being managed by surgery and they will determine duration of treatment as well as antibiotics (5) DM type 1 (diabetes mellitus, type 1) Is this a current diagnosis for this admission?: Yes Plan: HBG A1C 13.2. Will continue SSI and Lantus. Accucheck Qmeals. (6) DVT prophylaxis Is this a current diagnosis for this admission?: Yes Plan: SCDs - Time Time Spent with patient: 15-24 minutes
[2017-05-22] MEDS: LEVOFLOXACIN 750 MG/D5W RTU 750 MG/150 ML RTUPB IV SCH (18:15)
[2017-05-22 18:46] LABS: VANCOMYCIN,TROUGH 12.8 ug/mL (5.0-20.0)
[2017-05-22] MEDS ORDERED: ALTEPLASE INJ 2 MG VIAL (CATH CLEARANCE) IV ONE (19:30)
[2017-05-22] MEDS ORDERED: LEVOFLOXACIN 750 MG/D5W RTU 750 MG/150 ML RTUPB IV ONE (20:00)
[2017-05-22] MEDS: INSULIN GLARGINE,HUM.REC.ANLOG 300 UNIT/3 ML INSULN.PEN SUBCUT SCH (22:09)
[2017-05-22] MEDS: ACETAMINOPHEN 325 MG TABLET PO PRN (22:35)
[2017-05-23] MEDS: INSULIN REG, HUMAN 100 UNIT/ML 3 ML VIAL (PYX) SUBCUT PRN ×3 (00:19→12:04)
[2017-05-23] MEDS: VANCOMYCIN HCL 1,000 MG in DEXTROSE 5%-WATER 250 ML IV SCH ×3 (05:56→21:05)
[2017-05-23 07:32] LABS: ABSOLUTE BASOPHILS # (AUTO) 0.1 10^3/uL (0.0-0.2); ABSOLUTE EOSINOPHILS # (AUTO) 0.4 10^3/uL (0.0-0.6); ABSOLUTE LYMPHOCYTES (AUTO) 2.5 10^3/uL (0.5-4.7); ABSOLUTE MONOCYTES (AUTO) 0.7 10^3/uL (0.1-1.4); ABSOLUTE NEUT (AUTO) 4.2 10^3/uL (1.7-8.2); BASOPHILS % (AUTO) 0.8 % (0-2); EOSINOPHILS % (AUTO) 5.6 % (0-6); HEMATOCRIT 36.1 % (36.0-47.0); LYMPHOCYTES % (AUTO) 31.8 % (13-45); MEAN CORPUSCULAR HEMOGLOBIN 27.5 pg (27.0-33.4); MEAN CORPUSCULAR HGB CONC 33.1 g/dL (32.0-36.0); MEAN CORPUSCULAR VOLUME 83 fl (80-97); MONOCYTES % (AUTO) 8.4 % (3-13); PLATELET COUNT 283 10^3/uL (150-450); RED BLOOD COUNT 4.36 10^6/uL (3.72-5.28); SEGMENTED NEUTROPHILS % (AUTO) 53.4 % (42-78); TOTAL CELLS COUNTED % (AUTO) 100 %; WHITE BLOOD COUNT 7.9 10^3/uL (4.0-10.5)
[2017-05-23 07:50] LABS: ALANINE AMINOTRANSFERASE 24 U/L (9-52); ALBUMIN 2.8 g/dL (3.5-5.0); ALKALINE PHOSPHATASE 90 U/L (38-126); ANION GAP 7 (5-19); ASPARTATE AMINO TRANSFERASE 11 U/L (14-36); BLOOD UREA NITROGEN 9 mg/dL (7-20); CALCIUM 8.9 mg/dL (8.4-10.2); CARBON DIOXIDE 29 mmol/L (22-30); CHLORIDE 101 mmol/L (98-107); GLUCOSE 258 mg/dL (75-110); MAGNESIUM 1.6 mg/dL (1.6-2.3); POTASSIUM 4.3 mmol/L (3.6-5.0); SODIUM 136.8 mmol/L (137-145)
[2017-05-23 07:54] LABS: BILIRUBIN,TOTAL < 0.1 mg/dL (0.2-1.3)
[2017-05-23] MEDS: NORMAL SALINE 1000 ML 1,000 ML IV PRN ×2 (10:38→20:58)
[2017-05-23] MEDS: NORMAL SALINE 10 ML SDV (SCHEDULED) IV SCH ×2 (10:38→21:05)
--- NOTE | 2017-05-23 11:13 | PDOC PROGRESS REPORT ---
Subjective Progress Note for:: 05/23/17 Subjective:: The patient continues to have swelling and redness of the right foot and lower leg. She is being set up for discharge home when she improves with home iv antibiotics for osteomyelitis of the right fifth distal phalanx. Reason For Visit: RIGHT FOOT CELLULITIS, POSSIBLE OSTEO. RIGHT FIFTH Physical Exam Vital Signs: Temp Pulse Resp BP Pulse Ox 98.1 F 82 16 108/65 99 05/23/17 08:02 05/23/17 08:02 05/23/17 08:02 05/23/17 08:02 05/23/17 08:02 Intake & Output 05/22/17 05/23/17 05/24/17 06:59 06:59 06:59 Intake Total 1795 Output Total 1999 Balance -205 Weight 63 kg 76.2 kg General appearance: PRESENT: no acute distress Eye exam: PRESENT: conjunctiva pink, EOMI, PERRLA. ABSENT: scleral icterus Ear exam: PRESENT: normal external ear exam Neck exam: ABSENT: carotid bruit, JVD, lymphadenopathy, thyromegaly Respiratory exam: PRESENT: clear to auscultation jey. ABSENT: rales, rhonchi, wheezes Cardiovascular exam: PRESENT: RRR. ABSENT: diastolic murmur, rubs, systolic murmur GI/Abdominal exam: PRESENT: normal bowel sounds, soft. ABSENT: distended, guarding, mass, organolmegaly, rebound, tenderness Extremities exam: PRESENT: other - Edema and erythema of the right foot and lower leg; calluses of both feet under the 1st metatarsal head as well as the lateral aspect of the right fifth metatarsal; She does have charcot foot with high arched plantar arch. No open ulcers. Neurological exam: PRESENT: alert, awake, oriented to person, oriented to place , oriented to time, oriented to situation, CN II-XII grossly intact. ABSENT: motor sensory deficit Psychiatric exam: PRESENT: appropriate affect, normal mood. ABSENT: homicidal ideation, suicidal ideation Skin exam: PRESENT: erythema, warm Results Laboratory Results: 05/23/17 06:55 05/23/17 06:55 05/22/17 05/23/17 05/23/17 17:40 06:55 06:55 WBC 7.9 RBC 4.36 Hgb 12.0 Hct 36.1 MCV 83 MCH 27.5 MCHC 33.1 RDW 13.0 Plt Count 283 Seg Neutrophils % 53.4 Lymphocytes % 31.8 Monocytes % 8.4 Eosinophils % 5.6 Basophils % 0.8 Absolute Neutrophils 4.2 Absolute Lymphocytes 2.5 Absolute Monocytes 0.7 Absolute Eosinophils 0.4 Absolute Basophils 0.1 Sodium 136.8 L Potassium 4.3 Chloride 101 Carbon Dioxide 29 Anion Gap 7 BUN 9 Creatinine 0.51 L 0.50 L Est GFR ( Amer) > 60 > 60 Est GFR (Non-Af Amer) > 60 > 60 Glucose 258 H Calcium 8.9 Magnesium 1.6 Total Bilirubin < 0.1 L AST 11 L ALT 24 Alkaline Phosphatase 90 Total Protein 5.0 L Albumin 2.8 L Impressions: Lower Extremity MRI 05/20/17 00:00 IMPRESSION: Osteomyelitis of the distal phalanx of the 5th digit which is a conjoined middle and distal phalanx. No soft tissue abscess. Foot X-Ray 05/20/17 02:10 IMPRESSION: 1. Possible lytic lesion arising at the lateral aspect of the fifth distal phalanx. This could be seen with osteomyelitis. Correlation with contrast-enhanced MRI could provide additional information. Guidance Fluoroscopy 05/21/17 00:00 IMPRESSION: Intra procedural imaging and fluoro PICC Line Insertion 05/21/17 00:00 IMPRESSION: Intra procedural imaging and fluoro Assessment & Plan - Diagnosis (1) Cellulitis of right anterior lower leg Is this a current diagnosis for this admission?: Yes (2) Cellulitis of right foot Is this a current diagnosis for this admission?: Yes (3) Osteomyelitis of toe of right foot Is this a current diagnosis for this admission?: Yes (4) DM type 1 (diabetes mellitus, type 1) Is this a current diagnosis for this admission?: Yes - Plan Summary Plan Summary: Patient not yet ready for discharge as she still has ongoing edema and erythema - improving gradually. I told her she will need to see a career technical education instructor on discharge for appropriate diabetic footwear to prevent progression from calluses to ulcers. Continue iv antibiotics - she will need this for 8 weeks for the osteomyelitis. I do not see any indication for an amputation at this time - the osteomyelitis can be treated with iv antibiotics and then re-evaluated. The patient will have to be very compliant with treatment.
[2017-05-23] MEDS: LEVOFLOXACIN 750 MG/D5W RTU 750 MG/150 ML RTUPB IV SCH (18:21)
--- NOTE | 2017-05-23 19:42 | PDOC PROGRESS REPORT ---
Subjective Progress Note for:: 05/23/17 Subjective:: Pt states that her swelling is decreasing. Reason For Visit: RIGHT FOOT CELLULITIS, POSSIBLE OSTEO. RIGHT FIFTH Physical Exam Vital Signs: Temp Pulse Resp BP Pulse Ox 98.1 F 98 17 115/68 98 05/23/17 16:01 05/23/17 16:01 05/23/17 16:01 05/23/17 16:01 05/23/17 16:01 Intake & Output 05/22/17 05/23/17 05/24/17 06:59 06:59 06:59 Intake Total 1795 Output Total 1999 Balance -205 Weight 63 kg 76.2 kg General appearance: PRESENT: no acute distress, well-developed, well-nourished Head exam: PRESENT: atraumatic, normocephalic Eye exam: PRESENT: conjunctiva pink, EOMI. ABSENT: scleral icterus Ear exam: PRESENT: normal external ear exam Mouth exam: PRESENT: moist, tongue midline Neck exam: ABSENT: carotid bruit, JVD, lymphadenopathy, thyromegaly Respiratory exam: PRESENT: clear to auscultation jey. ABSENT: rales, rhonchi, wheezes Cardiovascular exam: PRESENT: RRR. ABSENT: diastolic murmur, rubs, systolic murmur Pulses: PRESENT: normal dorsalis pedis pul Vascular exam: PRESENT: normal capillary refill GI/Abdominal exam: PRESENT: normal bowel sounds, soft. ABSENT: distended, guarding, mass, organolmegaly, rebound, tenderness Rectal exam: PRESENT: deferred Extremities exam: PRESENT: other - +right foot edema Neurological exam: PRESENT: alert, awake, oriented to person, oriented to place , oriented to time, oriented to situation, CN II-XII grossly intact. ABSENT: motor sensory deficit Psychiatric exam: PRESENT: appropriate affect, normal mood. ABSENT: homicidal ideation, suicidal ideation Skin exam: PRESENT: dry, intact, warm. ABSENT: cyanosis, rash Results Laboratory Results: 05/23/17 06:55 05/23/17 06:55 05/23/17 05/23/17 06:55 06:55 WBC 7.9 RBC 4.36 Hgb 12.0 Hct 36.1 MCV 83 MCH 27.5 MCHC 33.1 RDW 13.0 Plt Count 283 Seg Neutrophils % 53.4 Lymphocytes % 31.8 Monocytes % 8.4 Eosinophils % 5.6 Basophils % 0.8 Absolute Neutrophils 4.2 Absolute Lymphocytes 2.5 Absolute Monocytes 0.7 Absolute Eosinophils 0.4 Absolute Basophils 0.1 Sodium 136.8 L Potassium 4.3 Chloride 101 Carbon Dioxide 29 Anion Gap 7 BUN 9 Creatinine 0.50 L Est GFR ( Amer) > 60 Est GFR (Non-Af Amer) > 60 Glucose 258 H Calcium 8.9 Magnesium 1.6 Total Bilirubin < 0.1 L AST 11 L ALT 24 Alkaline Phosphatase 90 Total Protein 5.0 L Albumin 2.8 L Impressions: Lower Extremity MRI 05/20/17 00:00 IMPRESSION: Osteomyelitis of the distal phalanx of the 5th digit which is a conjoined middle and distal phalanx. No soft tissue abscess. Foot X-Ray 05/20/17 02:10 IMPRESSION: 1. Possible lytic lesion arising at the lateral aspect of the fifth distal phalanx. This could be seen with osteomyelitis. Correlation with contrast-enhanced MRI could provide additional information. Guidance Fluoroscopy 05/21/17 00:00 IMPRESSION: Intra procedural imaging and fluoro PICC Line Insertion 05/21/17 00:00 IMPRESSION: Intra procedural imaging and fluoro Assessment & Plan - Diagnosis (1) Osteomyelitis Qualifiers: Osteomyelitis type: unspecified type Osteomyelitis location: foot Laterality: right Qualified Code(s): M86.9 - Osteomyelitis, unspecified Is this a current diagnosis for this admission?: Yes Plan: Patient with evidence on MRI of osteo-of the distal phalanx of the fifth digit. Vancomycin and Levaquin. (2) Paronychia Is this a current diagnosis for this admission?: Yes Plan: Right Great Toe: Surgery change patient's antibiotics from clindamycin which patient was responding to to vancomycin and Levaquin. Surgery is managing antibiotic selection and duration of treatment (3) Tobacco dependence Is this a current diagnosis for this admission?: Yes Plan: Encourage discontinuation of tobacco products. (4) Cellulitis Qualifiers: Site of cellulitis: extremity Site of cellulitis of extremity: lower extremity Laterality: right Qualified Code(s): L03.115 - Cellulitis of right lower limb Is this a current diagnosis for this admission?: Yes Plan: Right Great Toe: Patient currently placed on vancomycin and Levaquin. Patient however was responded to clindamycin. Patient's antibiotic treatment plan will is being managed by surgery and they will determine duration of treatment as well as antibiotics (5) DM type 1 (diabetes mellitus, type 1) Is this a current diagnosis for this admission?: Yes Plan: HBG A1C 13.2. Will continue SSI and Lantus. Accucheck Qmeals. (6) DVT prophylaxis Is this a current diagnosis for this admission?: Yes Plan: SCDs - Time Time Spent with patient: 15-24 minutes
[2017-05-23] MEDS ORDERED: INSULIN GLARGINE,HUM.REC.ANLOG 300 UNIT/3 ML INSULN.PEN SUBCUT SCH (22:00)
[2017-05-24] MEDS: INSULIN REG, HUMAN 100 UNIT/ML 3 ML VIAL (PYX) SUBCUT PRN ×4 (00:17→18:41)
[2017-05-24] MEDS: VANCOMYCIN HCL 1,000 MG in DEXTROSE 5%-WATER 250 ML IV SCH ×3 (05:06→22:39)
[2017-05-24] MEDS: NORMAL SALINE 1000 ML 1,000 ML IV PRN (05:07)
--- NOTE | 2017-05-24 07:59 | PDOC PROGRESS REPORT ---
Subjective Progress Note for:: 05/24/17 Subjective:: Pain is less no fever Reason For Visit: RIGHT FOOT CELLULITIS, POSSIBLE OSTEO. RIGHT FIFTH Physical Exam Vital Signs: Temp Pulse Resp BP Pulse Ox 98.1 F 99 18 106/63 98 05/24/17 04:37 05/24/17 04:37 05/24/17 04:37 05/24/17 04:37 05/24/17 00:04 Intake & Output 05/23/17 05/24/17 05/25/17 06:59 06:59 06:59 Intake Total 400 Balance 400 Weight 76.2 kg 78.3 kg Extremities exam: PRESENT: other - right leg and foot edema and erythema much less and localized. No abscesses, no soft tissue necrosis Results Laboratory Results: 05/23/17 06:55 05/23/17 06:55 05/23/17 06:55 Sodium 136.8 L Potassium 4.3 Chloride 101 Carbon Dioxide 29 Anion Gap 7 BUN 9 Creatinine 0.50 L Est GFR ( Amer) > 60 Est GFR (Non-Af Amer) > 60 Glucose 258 H Calcium 8.9 Magnesium 1.6 Total Bilirubin < 0.1 L AST 11 L ALT 24 Alkaline Phosphatase 90 Total Protein 5.0 L Albumin 2.8 L Impressions: Lower Extremity MRI 05/20/17 00:00 IMPRESSION: Osteomyelitis of the distal phalanx of the 5th digit which is a conjoined middle and distal phalanx. No soft tissue abscess. Foot X-Ray 05/20/17 02:10 IMPRESSION: 1. Possible lytic lesion arising at the lateral aspect of the fifth distal phalanx. This could be seen with osteomyelitis. Correlation with contrast-enhanced MRI could provide additional information. Guidance Fluoroscopy 05/21/17 00:00 IMPRESSION: Intra procedural imaging and fluoro PICC Line Insertion 05/21/17 00:00 IMPRESSION: Intra procedural imaging and fluoro Assessment & Plan - Plan Summary Plan Summary: Right lower Extrimity cellulitis resolving Osteomyelitis toes - DC plan with IV antibiotics May be DC d when medically ok Surgery follow - up PRN
--- NOTE | 2017-05-24 09:39 | PROGRESS NOTE E ---
Progress Note NAME: RAGHAVENDRA PEREZ : 1990 AGE: 27Y DATE: 05/24/2017 ROOM: 210 SUBJECTIVE: The patient is currently lying in bed. The patient states that she feels better and actually wants to go home. The patient has denied any nausea or vomiting. No diarrhea, shortness of breath, dizziness, or chest pain. She states that her pain in the foot overall has improved, and the patient does not voice any other concerns at this time. REVIEW OF SYSTEMS: Rest of the review of systems negative. MEDICATIONS: Have been reviewed. OBJECTIVE: GENERAL: The patient is a 27-year-old female who is awake and alert. She is oriented to person, place, time, and situation. She is verbal, conversational, and does not appear to be distressed. VITAL SIGNS: Temperature is 98.5, pulse 90, respirations 16, blood pressure is 110/65, oxygen saturation is 98% on room air. SKIN: Warm and dry. No rash. She is not diaphoretic. HEENT: Pupils equal, round, reactive to light and accommodation. Conjunctivae are pink. There is no evidence of JVP. CARDIOVASCULAR: Heart is regular. No murmur or rub. CHEST: Clear, symmetrical, unlabored. ABDOMEN: Nontender and nondistended. EXTREMITIES: No clubbing, cyanosis, or edema. The patient's right lower extremity has evidence of cellulitis and edema, but appears to be receding. DIAGNOSTICS: Lab values are as follow: Hematology obtained on 05/23/2017: WBCs are 7.9, hemoglobin is 12.0, hematocrit is 36.1, platelet count is 283,000. Chemistry obtained on 05/23/2017: Sodium is 136, potassium 4.3, chloride is 101, carbon dioxide 29, BUN 9, creatinine is 0.50, glucose 68, calcium is 8.9, magnesium 1.6. IMPRESSION AND PLAN: 1. CELLULITIS OF THE RIGHT LOWER EXTREMITY WITH OSTEOMYELITIS. The patient had evidence of osteo by MRI. The patient was started on vancomycin and Levaquin by Surgery. This can be managed as per Surgery. 2. TOBACCO DEPENDENCY. Spent 3 minutes discussing smoking cessation education and the patient declines any pharmacological intervention at this time but does admit to a p.r.n. nicotine patch. 3. DIABETES MELLITUS TYPE 1. The patient's A1c is significantly elevated. Will continue Lantus. Accu-Cheks with each meal as well. Will increase the patient's basal dose of insulin to 40 units. 4. DVT PROPHYLAXIS. SCDs. DISPOSITION: The patient is a FULL CODE. The patient is clear for discharge from a medical perspective. The patient appears to be going to be on outpatient IV antibiotics as per Surgery's discretion. Will sign off on the patient at this time. Should any issues occur, please free to re-consult the hospitalist. And as always, the hospitalist would like to thank the surgicalist team for allowing us to graciously participate in the care of this patient. Time spent on this followup including assessment, plan, physical examination, patient education, and review of records is 25 minutes. DICTATING PHYSICIAN: VICKY KEYS NP [id number] DARLENE#: [id number] ID: [id number] JOB#: [id number] ACCT: [id number] cc: >
[2017-05-24] MEDS: NORMAL SALINE 10 ML SDV (SCHEDULED) IV SCH ×2 (10:37→22:40)
[2017-05-24] MEDS: LEVOFLOXACIN 750 MG/D5W RTU 750 MG/150 ML RTUPB IV SCH (17:25)
[2017-05-24] MEDS: INSULIN GLARGINE,HUM.REC.ANLOG 300 UNIT/3 ML INSULN.PEN SUBCUT SCH (22:39)
[2017-05-25] MEDS: INSULIN REG, HUMAN 100 UNIT/ML 3 ML VIAL (PYX) SUBCUT PRN ×4 (00:42→17:54)
[2017-05-25] MEDS: VANCOMYCIN HCL 1,000 MG in DEXTROSE 5%-WATER 250 ML IV SCH ×3 (05:03→22:41)
[2017-05-25] MEDS: ACETAMINOPHEN 325 MG TABLET PO PRN (05:03)
[2017-05-25] MEDS: NORMAL SALINE 10 ML SDV (SCHEDULED) IV SCH ×2 (10:20→22:42)
--- NOTE | 2017-05-25 15:47 | PDOC PROGRESS REPORT ---
Subjective Progress Note for:: 05/25/17 Subjective:: No fever, pain minimal Reason For Visit: RIGHT FOOT CELLULITIS, POSSIBLE OSTEO. RIGHT FIFTH Physical Exam Vital Signs: Temp Pulse Resp BP Pulse Ox 98.2 F 87 18 114/72 96 05/25/17 11:35 05/25/17 11:35 05/25/17 11:35 05/25/17 11:35 05/25/17 11:35 Intake & Output 05/24/17 05/25/17 05/26/17 06:59 06:59 06:59 Intake Total 400 100 Balance 400 100 Weight 78.3 kg Extremities exam: PRESENT: other - Right lower extrimity erythema, cellulitis resolving Results Laboratory Results: 05/23/17 06:55 05/23/17 06:55 Impressions: Lower Extremity MRI 05/20/17 00:00 IMPRESSION: Osteomyelitis of the distal phalanx of the 5th digit which is a conjoined middle and distal phalanx. No soft tissue abscess. Foot X-Ray 05/20/17 02:10 IMPRESSION: 1. Possible lytic lesion arising at the lateral aspect of the fifth distal phalanx. This could be seen with osteomyelitis. Correlation with contrast-enhanced MRI could provide additional information. Guidance Fluoroscopy 05/21/17 00:00 IMPRESSION: Intra procedural imaging and fluoro PICC Line Insertion 05/21/17 00:00 IMPRESSION: Intra procedural imaging and fluoro Assessment & Plan - Plan Summary Plan Summary: Cellulitis right leg - resolving Osteomyelitis- DC Plan tomorrow with IV antiboiotics at home
[2017-05-25] MEDS: LEVOFLOXACIN 750 MG/D5W RTU 750 MG/150 ML RTUPB IV SCH (17:12)
[2017-05-25] MEDS: INSULIN GLARGINE,HUM.REC.ANLOG 300 UNIT/3 ML INSULN.PEN SUBCUT SCH (22:41)
[2017-05-26] MEDS: VANCOMYCIN HCL 1,000 MG in DEXTROSE 5%-WATER 250 ML IV SCH ×2 (05:13→13:42)
[2017-05-26 08:38] VITALS: BP 109/70
[2017-05-26] MEDS: NORMAL SALINE 10 ML SDV (SCHEDULED) IV SCH (09:49)
[2017-05-26] MEDS: INSULIN REG, HUMAN 100 UNIT/ML 3 ML VIAL (PYX) SUBCUT PRN (11:43)
--- NOTE | 2017-05-26 20:07 | PDOC DISCHARGE SUMMARY ---
General - Admit/Disc Date/PCP Admission Date/Primary Care Provider: 05/20/17 05:26 JAQUAN MORENOUMATE, Discharge Date: 05/26/17 - Discharge Diagnosis (1) Cellulitis of right anterior lower leg Is this a current diagnosis for this admission?: Yes (2) Cellulitis of right foot Is this a current diagnosis for this admission?: Yes (3) Osteomyelitis of toe of right foot Is this a current diagnosis for this admission?: Yes (4) DM type 1 (diabetes mellitus, type 1) Is this a current diagnosis for this admission?: Yes - Additional Information Resuscitation Status: Full Code Discharge Diet: Regular Discharge Activity: Activity As Tolerated, Balance Activity w/Rest, No tub bath Prescriptions: Levofloxacin/D5w [Levofloxacin 750 mg/150 ml-D5w] 750 mg IV DAILY 60 Days piggyback Vancomycin/0.9 % Sod Chloride [Vanco 2 Gram/500 ml-0.9% NaCl] 2 gm IV DAILY 60 Days plast..bag Home Medications: Insulin Aspart [Novolog Insulin (Aspart) 100 unit/mL] See Protocol SQ MEALS 09/29 Insulin Glargine,Hum.rec.anlog [Lantus Insulin 100 Unit/1 ml 10 ml] 36 units SQ QHS 05/20/17 Acetaminophen [Tylenol 325 mg Tablet] 650 mg PO Q6HP PRN tablet 05/26/17 Levofloxacin/D5w [Levofloxacin 750 mg/150 ml-D5w] 750 mg IV DAILY 60 Days piggyback 05/26/17 Vancomycin/0.9 % Sod Chloride [Vanco 2 Gram/500 ml-0.9% NaCl] 2 gm IV DAILY 60 Days plast..bag 05/26/17 History of Present Illness History of Present Illness: RAGHAVENDRA PEREZ is a 27 year old female ith type 1 diabetes poorly controlled admitted with cellulitis of the right foot and leg associated with right fifth toe distal phalanx osteomyelitis. She does have diabetic neuropathy with Charcot 's foot. She had no open ulcers but did have calluses on both feet. Hospital Course Hospital Course: She was treated with iv vancomycin and levofloxacin empirically to cover for the osteomyelitis. She had a PICC placed and will receive antibiotics for 8 weeks iv. She will f/u with her PCP and with the collection systems foreman. Physical Exam Vital Signs: Temp Pulse Resp BP Pulse Ox 97.4 F 88 18 109/70 96 05/26/17 14:33 05/26/17 14:33 05/26/17 14:33 05/26/17 14:33 05/26/17 14:33 Intake & Output 05/25/17 05/26/17 05/27/17 06:59 06:59 06:59 Intake Total 100 1250 Balance 100 1250 General appearance: PRESENT: no acute distress, well-developed, well-nourished Head exam: PRESENT: atraumatic, normocephalic Eye exam: PRESENT: conjunctiva pink, EOMI, PERRLA. ABSENT: scleral icterus Ear exam: PRESENT: normal external ear exam Neck exam: ABSENT: carotid bruit, JVD, lymphadenopathy, thyromegaly Respiratory exam: PRESENT: clear to auscultation jey. ABSENT: rales, rhonchi, wheezes Cardiovascular exam: PRESENT: RRR. ABSENT: diastolic murmur, rubs, systolic murmur Pulses: PRESENT: +2 pedal pulses bilateral GI/Abdominal exam: PRESENT: normal bowel sounds, soft. ABSENT: distended, guarding, mass, organolmegaly, rebound, tenderness Extremities exam: PRESENT: other - 1+ edema right foot and lower leg, erythema is improved. Neurological exam: PRESENT: alert, awake, oriented to person, oriented to place , oriented to time, oriented to situation, CN II-XII grossly intact, motor sensory deficit Psychiatric exam: PRESENT: appropriate affect, normal mood. ABSENT: homicidal ideation, suicidal ideation Results Laboratory Results: 05/23/17 06:55 05/23/17 06:55 Impressions: Lower Extremity MRI 05/20/17 00:00 IMPRESSION: Osteomyelitis of the distal phalanx of the 5th digit which is a conjoined middle and distal phalanx. No soft tissue abscess. Foot X-Ray 05/20/17 02:10 IMPRESSION: 1. Possible lytic lesion arising at the lateral aspect of the fifth distal phalanx. This could be seen with osteomyelitis. Correlation with contrast-enhanced MRI could provide additional information. Guidance Fluoroscopy 05/21/17 00:00 IMPRESSION: Intra procedural imaging and fluoro PICC Line Insertion 05/21/17 00:00 IMPRESSION: Intra procedural imaging and fluoro Plan Discharge Plan: discharge on iv vancomycin 2g dly x 8 weeks iv levofloxacin 750mg dly x 8 weeks. F/U with PCP for DM and osteomyelitis/cellulitis F/U with collection systems foreman for diabetic shoes - appointment made Time Spent: Less than 30 Minutes
== END 2017-05-26 15:50 | disposition home health service (06) | DRG 603 ==
LOC: ER 00:50 → EH 05:26 → OBSVTOIN 05:26 → INTOOBSV 05:26 → 2N 06:50
PROVIDERS: ADMIT Surgery; ATTEND Surgery
PROC: 02HV33Z Insertion of Infusion Device into Superior Vena Cava, Percutaneous Approach (ICD-10-PCS; principal; 2017-05-21)
PROC: B548ZZA Ultrasonography of Superior Vena Cava, Guidance (ICD-10-PCS; 2017-05-21)
PROC: B5181ZA Fluoroscopy of Superior Vena Cava using Low Osmolar Contrast, Guidance (ICD-10-PCS; 2017-05-21)
DX: L03.115 Cellulitis of right lower limb (principal); M86.9 Osteomyelitis, unspecified; E10.69 Type 1 diabetes mellitus with other specified complication; E10.40 Type 1 diabetes mellitus with diabetic neuropathy, unspecified; L03.031 Cellulitis of right toe; E10.65 Type 1 diabetes mellitus with hyperglycemia; F17.210 Nicotine dependence, cigarettes, uncomplicated; Z79.899 Other long term (current) drug therapy; Z83.3 Family history of diabetes mellitus
CPT/HCPCS: 36415; 36569; 76937; 77001; 80053; 80202; 80307; 81001; 81005; 82565; 82803; 82962; 83036; 83735; 85025; 87040; 99285; C1752; G0378; G0480; J1170; J1642; J1815; J1956; J2997; J3370; J3490; J7030; J7060

== ENCOUNTER 2017-05-31 07:38 | Emergency (ER) | payer MEDICAID ==
[2017-05-31 07:43] VITALS: BP 127/77
--- NOTE | 2017-05-31 08:32 | ER Document Report ---
ED General - General Chief Complaint: Other Stated Complaint: LABS Time Seen by Provider: 05/31/17 08:15 Mode of Arrival: Ambulatory Information source: Patient TRAVEL OUTSIDE OF THE [place] IN LAST 30 DAYS: No - HPI Notes: 27-year-old female who is a type I diabetic and is currently being treated as outpatient with IV vancomycin for a left distal phalanx osteomyelitis presents today for a vancomycin trough and to change her PICC line dressing. Patient is being managed by [facility] and seeing surgery this week at her appointment. Denies any fevers or chills. Denies any chest pain, shortness of breath, nausea, vomiting, diarrhea, abdominal pain. States her foot is doing well, has no complaints at this time. States a nurse will be coming to her house to do blood work next time. Patient is receiving IV vancomycin daily. Patient was admitted on May 20 for osteomyelitis and was discharged on May 26 with a PICC line to receive outpatient IV vancomycin. Denies any headaches, rashes, blurred vision, double vision, loss of vision. Patient smoked a cigarette just prior to coming into the ER. Has no complaints at this time - Related Data Allergies/Adverse Reactions: No Known Allergies Allergy (Verified 05/31/17 07:39) Past Medical History - General Information source: Patient - Social History Smoking Status: Current Every Day Smoker Frequency of alcohol use: None Drug Abuse: Methamphetamine Family History: DM Patient has suicidal ideation: No Patient has homicidal ideation: No Endocrine Medical History: Reports: Hx Diabetes Mellitus Type 1 Renal/ Medical History: Denies: Hx Peritoneal Dialysis Psychiatric Medical History: Denies: Hx Depression Past Surgical History: Reports: Hx Orthopedic Surgery - R humerus repair, Other - Surgery on Right arm due to Fracture. Review of Systems - Review of Systems Constitutional: No symptoms reported EENT: No symptoms reported Cardiovascular: No symptoms reported Respiratory: No symptoms reported Gastrointestinal: No symptoms reported Genitourinary: No symptoms reported Female Genitourinary: No symptoms reported Musculoskeletal: No symptoms reported Skin: No symptoms reported Hematologic/Lymphatic: See HPI Neurological/Psychological: No symptoms reported Physical Exam - Vital signs Vitals: Temp Pulse Resp BP Pulse Ox 98.0 F 103 H 15 127/77 H 100 05/31/17 07:42 05/31/17 07:42 05/31/17 07:42 05/31/17 07:42 05/31/17 07:42 - Notes Notes: PHYSICAL EXAMINATION: GENERAL: Well-appearing, well-nourished and in no acute distress. HEAD: Atraumatic, normocephalic. EYES: Pupils equal round and reactive to light, extraocular movements intact, conjunctiva are normal. ENT: Nares patent, oropharynx clear without exudates. Moist mucous membranes. NECK: Normal range of motion, supple without lymphadenopathy LUNGS: Breath sounds clear to auscultation bilaterally and equal. No wheezes rales or rhonchi. HEART: Regular rate and rhythm without murmurs ABDOMEN: Soft, nontender, nondistended abdomen. No guarding, no rebound. No masses appreciated. Female : deferred Musculoskeletal: Normal range of motion, no pitting or edema. No cyanosis. NEUROLOGICAL: Cranial nerves grossly intact. Normal speech, normal gait. Normal sensory, motor exams PSYCH: Normal mood, normal affect. SKIN: Warm, Dry, normal turgor, no rashes or lesions noted. Right foot with noted erythema, induration. No open wounds. No discoloration. Cap refill less than 3 seconds. Distal pulses +2 in bilateral lower extremities equally. Full range of motion and full motor and sensory function of bilateral lower extremities equally. No surrounding erythema. DTR +2 bilateral lower extremities equally. Able to fully ambulate on legs. PICC line in right AC no surrounding erythema, induration or swelling. Course - Re-evaluation Re-evalutation: Rechecked the patient who is resting comfortably. On re-exam, patient is symptomatically improved. Discussed the diagnosis at great length. Discussed the need to return to the ER for any new or worsening sx.Patient understands to take the Rx as directed. All questions answered by this provider. Patient agreed with plan of care and verbalized understanding of plan of care. Patient comfortable with the decision to go home. - Vital Signs Vital signs: Temp Pulse Resp BP Pulse Ox 98.0 F 103 H 15 127/77 H 100 05/31/17 07:42 05/31/17 07:42 05/31/17 07:42 05/31/17 07:42 05/31/17 07:42 - Laboratory Laboratory results interpreted by me: 05/31/17 09:25 Vancomycin Trough < 5.0 L Discharge - Discharge Clinical Impression: Osteomyelitis of right foot Qualifiers: Osteomyelitis type: unspecified type Qualified Code(s): M86.9 - Osteomyelitis, unspecified Condition: Good Disposition: HOME, SELF-CARE Additional Instructions: Osteomyelitis You have been diagnosed as having osteomyelitis -- an infection in the bone. This type of infection is much more serious than simple skin infections and must be treated aggressively. Osteomyelitis usually results from cuts or puncture wounds which allow germs to get into the bone. It can also occur spontaneously from germs in the blood stream. The usual treatment is intravenous antibiotics. With newer antibiotics, this can often be done outside the hospital. Surgery to clean out the infected bone is often necessary. You MUST keep all appointments and get your antibiotics as instructed -- osteomyelitis is a serious problem. You should go to the emergency room or contact your physician if you have a dramatic increase in pain, redness, or swelling, or if you develop shaking chills, fever, or rash. Follow-up with surgery as Arty scheduled this week. Follow-up with your primary care provider which is rescheduled. Continue doing Vanco IV daily as it has been prescribed. Any symptoms become worse return to the emergency room since possible. Return immediately for any new or worsening symptoms. Continue with the IV vancomycin as directed through your PICC line. Go to her scheduled surgery appointment and primary care appointment this week. Return to the emergency room if symptoms become worse immediately,: 1. Follow up with primary care provider, call tomorrow to make followup appointment. Referrals: RYAN CARABALLO NP [Primary Care Provider] - Follow up in 1 week
[2017-05-31 10:00] LABS: VANCOMYCIN,TROUGH < 5.0 ug/mL (5.0-20.0)
== END 2017-05-31 10:10 | disposition home or self-care (01) ==
LOC: ER 07:38
DX: M86.9 Osteomyelitis, unspecified (principal); E10.9 Type 1 diabetes mellitus without complications; F17.210 Nicotine dependence, cigarettes, uncomplicated
CPT/HCPCS: 36415; 80202; 99284

== ENCOUNTER → 2017-06-12 | Outpatient (CLI) | payer MEDICAID ==
--- NOTE | 2017-06-12 12:52 | RADIOLOGY REPORT (SQ) ---
EXAM DESCRIPTION: CHEST PA/LATERAL COMPLETED DATE/TIME: 06/12/2017 11:00 am REASON FOR STUDY: PNEUMOTHORAX, UNSPECIFIED COMPARISON: None. EXAM PARAMETERS: NUMBER OF VIEWS: two views TECHNIQUE: Digital Frontal and Lateral radiographic views of the chest acquired. RADIATION DOSE: NA LIMITATIONS: none FINDINGS: LUNGS AND PLEURA: No opacities, masses or pneumothorax. No pleural effusion. MEDIASTINUM AND HILAR STRUCTURES: No masses or contour abnormalities. HEART AND VASCULAR STRUCTURES: Heart normal size. No evidence for failure. BONES: No acute findings. HARDWARE: PICC line on the left. OTHER: No other significant finding. IMPRESSION: NO SIGNIFICANT RADIOGRAPHIC FINDING IN THE CHEST. TECHNICAL DOCUMENTATION: JOB ID: [id number] [employer]- All Rights Reserved Reading location - IP/workstation name: [email or web address]
== END ==
LOC: OD 10:49
PROVIDERS: ATTEND Preventive Medicine Undersea and Hyperbaric Medicine
DX: J93.9 Pneumothorax, unspecified (principal)
CPT/HCPCS: 71046

== ENCOUNTER → 2017-07-01 | Outpatient (CLI) | payer MEDICAID ==
--- NOTE | 2017-07-01 18:26 | RADIOLOGY REPORT (SQ) ---
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 NUMBER OF VIEWS: Three views. TECHNIQUE: AP, lateral and oblique radiographic images acquired of the right foot. LIMITATIONS: None. FINDINGS: MINERALIZATION: Normal. BONES: No acute fracture or dislocation. No worrisome bone lesions. JOINTS: No effusions. SOFT TISSUES: No soft tissue swelling. No foreign body. OTHER: No other significant finding. IMPRESSION: NEGATIVE STUDY OF THE RIGHT FOOT. NO RADIOGRAPHIC EVIDENCE OF ACUTE INJURY. TECHNICAL DOCUMENTATION: JOB ID: [id number] [employer]- All Rights Reserved Reading location - IP/workstation name: [email or web address]
== END ==
LOC: RAD 17:00
PROVIDERS: ATTEND Preventive Medicine Undersea and Hyperbaric Medicine
DX: L97.514 Non-pressure chronic ulcer of other part of right foot with necrosis of bone (principal)

== ENCOUNTER 2017-07-09 14:16 | Emergency (ER) | payer MEDICAID ==
--- NOTE | 2017-07-09 14:48 | ER Document Report ---
ED General - General Mode of Arrival: Ambulatory Information source: Patient TRAVEL OUTSIDE OF THE [place] IN LAST 30 DAYS: No - HPI Onset: Just prior to arrival Onset/Duration: Sudden - General Stated Complaint: PICC LINE ISSUES Time Seen by Provider: 07/09/17 14:37 Notes: Patient is a 27 year old female with a history of diabetes and neuropathy presents to the emergency department due accidentally pulling out her PICC line. Patient states she was walking around her house when she accidentally "snagged" her PICC line. Patient states she did not try to push the line back in. Patient has a PICC line in place to receive Vancomycin due to an infection in her pinky toe. (CHRISTINA EMMANUEL) - Related Data Allergies/Adverse Reactions: No Known Allergies Allergy (Verified 07/09/17 14:30) Past Medical History - General Information source: Patient - Social History Smoking Status: Unknown if Ever Smoked Family History: DM Endocrine Medical History: Reports: Hx Diabetes Mellitus Type 1 Past Surgical History: Reports: Hx Orthopedic Surgery - R humerus repair, Other - Surgery on Right arm due to Fracture. Review of Systems - Review of Systems Constitutional: No symptoms reported EENT: No symptoms reported Cardiovascular: No symptoms reported Respiratory: No symptoms reported Gastrointestinal: No symptoms reported Genitourinary: No symptoms reported Female Genitourinary: No symptoms reported Musculoskeletal: See HPI Skin: No symptoms reported Hematologic/Lymphatic: No symptoms reported Neurological/Psychological: No symptoms reported -: Yes All other systems reviewed and negative Physical Exam - General General appearance: Appears well, Alert In distress: None - HEENT Head: Normocephalic, Atraumatic Eyes: Normal Conjunctiva: Normal - Cardiovascular Rhythm: Regular Heart sounds: Normal auscultation Murmur: No Friction rub: No Gallop: None auscultated - Extremities General upper extremity: Normal ROM, Other - PICC line in the left AC. Line is aprroximately 1cm out which appears to be baseline. All dressings around PICC line are in place. General lower extremity: Normal ROM - Neurological Neuro grossly intact: Yes Cognition: Normal Orientation: AAOx4 Adan Coma Scale Eye Opening: Spontaneous Adan Coma Scale Verbal: Oriented Adan Coma Scale Motor: Obeys Commands Adan Coma Scale Total: 15 Speech: Normal Motor strength normal: LUE, RUE, LLE, RLE - Psychological Associated symptoms: Normal affect, Normal mood - Skin Skin Temperature: Warm Skin Moisture: Dry Skin Color: Normal - Vital signs Vitals: Temp Pulse Resp BP Pulse Ox 97.9 F 98 18 116/71 96 07/09/17 14:25 07/09/17 14:25 07/09/17 14:25 07/09/17 14:25 07/09/17 14:25 Course - Re-evaluation Re-evalutation: 07/09/17 15:02 Patient's PICC line well-appearing with no evidence of infection. Patient denies pushing PICC line back into arm and it appears to be normal insertion. Nursing staff thoroughly cleansed around PICC line replaced Biopatch and redressed PICC line. Return precautions provided 07/09/17 15:04 (GIULIANO NIEVES) - Vital Signs Vital signs: Temp Pulse Resp BP Pulse Ox 98.0 F 90 18 112/68 98 07/09/17 15:15 07/09/17 15:15 07/09/17 15:15 07/09/17 15:15 07/09/17 15:15 Discharge - Discharge Clinical Impression: Encounter for redressing PICC line Condition: Good Disposition: HOME, SELF-CARE Additional Instructions: Your PICC line was redressed today. If you begin to notice any redness pus fevers at the insertion site please come back to emergency department for evaluation. Referrals: JODIE DIAS MD [Primary Care Provider] - Follow up as needed Scribe Attestation: 07/14/17 06:56 I personally performed the services described in the documentation, reviewed and edited the documentation which was dictated to the scribe in my presence, and it accurately records my words and actions. (GIULIANO NIEVES) Scribe Documentation - Scribe Written by Irma:: Irma Krause, 07/09/2017 14:52 acting as scribe for :: Monico
[2017-07-09 16:23] VITALS: BP 112/68
== END 2017-07-09 15:35 | disposition home or self-care (01) ==
LOC: ER 14:16
DX: T82.898A Other specified complication of vascular prosthetic devices, implants and grafts, initial encounter (principal); E10.40 Type 1 diabetes mellitus with diabetic neuropathy, unspecified; Y92.009 Unspecified place in unspecified non-institutional (private) residence as the place of occurrence of the external cause
CPT/HCPCS: 99283

== ENCOUNTER 2017-08-10 02:10 | Inpatient (IN) | payer MEDICAID ==
[2017-08-10] MEDS ORDERED: VANCOMYCIN HCL INJ 1000 MG VIAL IV ONE (03:46)
[2017-08-10] MEDS ORDERED: NORMAL SALINE 1000 ML 1,000 ML IV ONE (04:05)
[2017-08-10] MEDS ORDERED: INSULIN REG, HUMAN 100 UNIT/ML 3 ML VIAL (PYX) SUBCUT ONE ×2 (04:05→05:29)
--- NOTE | 2017-08-10 04:33 | ER Document Report ---
ED General - General Chief Complaint: Foot Pain Stated Complaint: RIGHT TOE PAIN Time Seen by Provider: 08/10/17 03:38 Notes: Patient is a 27-year-old female presents with complaint of infection to her right fifth toe. Patient is type I diabetic. She says her sugars have been running is a little bit high. She says she is taking her insulin. She is followed by Dr. Snider as well as Dr. Rossi. She last saw Dr. Snider last week. She still taken 2 weeks ago. She is will see Dr. Rossi this week but missed her appointment. Her next appointment is on . She was on antibiotics with a PICC line. PICC line was removed and antibiotic were stopped approximately 2 weeks ago. Patient says now the toe is red and swollen she is not currently on antibiotics. No fevers. No other complaints at this time. TRAVEL OUTSIDE OF THE [place] IN LAST 30 DAYS: No - Related Data Allergies/Adverse Reactions: No Known Allergies Allergy (Verified 07/09/17 14:30) Past Medical History - Social History Smoking Status: Unknown if Ever Smoked Frequency of alcohol use: None Drug Abuse: None Family History: DM Patient has suicidal ideation: No Patient has homicidal ideation: No Endocrine Medical History: Reports: Hx Diabetes Mellitus Type 1 Renal/ Medical History: Denies: Hx Peritoneal Dialysis Psychiatric Medical History: Denies: Hx Depression Past Surgical History: Reports: Hx Section, Hx Orthopedic Surgery - R humerus repair, Other - Surgery on Right arm due to Fracture. Review of Systems - Review of Systems Notes: My Normal Review Basic REVIEW OF SYSTEMS: CONSTITUTIONAL : Denies fever, chills, or sweats. Denies recent illness. EENT: Denies eye, ear, throat, or mouth pain or symptoms. Denies nasal or sinus congestion. RESPIRATORY: Denies cough, cold, or chest congestion. Denies shortness of breath, difficulty breathing, or wheezing. GASTROINTESTINAL: Denies abdominal pain. Denies nausea, vomiting, or diarrhea. Denies constipation. Last BM: MUSCULOSKELETAL: Right 5th toe infection SKIN: Denies rash or skin lesions. NEUROLOGICAL: Denies altered mental status or loss of consciousness. Denies headache. Denies weakness or paralysis or loss of use of either side. Denies problems with gait or speech. Denies sensory or motor loss. ALL OTHER SYSTEMS REVIEWED AND NEGATIVE. Physical Exam - Vital signs Vitals: Temp Pulse Resp BP Pulse Ox 97 F L 100 16 113/66 97 08/10/17 02:47 08/10/17 02:47 08/10/17 02:47 08/10/17 02:47 08/10/17 02:47 - Notes Notes: General Appearance: Well nourished, alert, cooperative, no acute distress, no obvious discomfort. Vitals: reviewed, See vital signs table. Eyes: PERRL, EOMI, Conjuctiva clear Mouth: No decreasd moisture Lungs: No wheezing, No rales, No rhonci, No accessory muscle use, good air exchange bilaterally. Heart: Normal rate, Regular rythm, No murmur, no rub Abdomen: Normal BS, soft, No rigidity, No abdominal tenderness, No guarding, no rebound, no abdominal masses, no organomegaly Extremities: Right fifth toe is very swollen and red and the lateral aspect toe has a wound with surrounding purulence beneath the skin. Redness does spread of the foot. The also some splotchy redness going up the right leg. Skin: warm, dry, appropriate color, no rash Neuro: speech clear, oriented x 3, normal affect, responds appropriately to questions. Course - Re-evaluation Re-evalutation: 08/10/17 05:38 I did speak with Dr. Dwyer, surgeon on-call, who agrees to see the patient in consultation and requested to keep the patient n.p.o. in case she does need a amputation. I will speak with the hospitalist to talk about admission being the patient has very high blood sugar and will need medical management. 08/10/17 06:[address] Roque, hospitalist, who agrees to accept the patient for admission. I did discuss the plan with the patient who agrees to plan to be admitted and to be evaluated by surgery. Dictation of this chart was performed using voice recognition software; therefore, there may be some unintended grammatical errors. - Vital Signs Vital signs: Temp Pulse Resp BP Pulse Ox 98.7 F 92 16 97/57 L 95 08/10/17 05:38 08/10/17 05:38 08/10/17 05:38 08/10/17 05:38 08/10/17 05:38 - Laboratory Result Diagrams: 08/10/17 04:23 08/10/17 04:23 Laboratory results interpreted by me: 08/10/17 08/10/17 04:00 04:23 Sodium 132.0 L Chloride 90 L Glucose 759 H* POC Glucose > 550 H* Discharge - Discharge Clinical Impression: Cellulitis of right foot, Osteomyelitis of toe of right foot Condition: Stable Disposition: ADMITTED INPATIENT Admitting Provider: Hospitalist Unit Admitted: Telemetry Referrals: JODIE DIAS MD [Primary Care Provider] - Follow up as needed
[2017-08-10 04:52] LABS: ABSOLUTE BASOPHILS # (AUTO) 0.1 10^3/uL (0.0-0.2); ABSOLUTE EOSINOPHILS # (AUTO) 0.3 10^3/uL (0.0-0.6); ABSOLUTE LYMPHOCYTES (AUTO) 2.6 10^3/uL (0.5-4.7); ABSOLUTE MONOCYTES (AUTO) 0.7 10^3/uL (0.1-1.4); ABSOLUTE NEUT (AUTO) 4.9 10^3/uL (1.7-8.2); BASOPHILS % (AUTO) 0.6 % (0-2); EOSINOPHILS % (AUTO) 3.3 % (0-6); HEMATOCRIT 36.9 % (36.0-47.0); LYMPHOCYTES % (AUTO) 30.8 % (13-45); MEAN CORPUSCULAR HEMOGLOBIN 27.1 pg (27.0-33.4); MEAN CORPUSCULAR HGB CONC 32.5 g/dL (32.0-36.0); MEAN CORPUSCULAR VOLUME 84 fl (80-97); MONOCYTES % (AUTO) 7.8 % (3-13); PLATELET COUNT 224 10^3/uL (150-450); RED BLOOD COUNT 4.42 10^6/uL (3.72-5.28); RED CELL DISTRIBUTION WIDTH 13.4 % (11.5-14.0); SEGMENTED NEUTROPHILS % (AUTO) 57.5 % (42-78); TOTAL CELLS COUNTED % (AUTO) 100 %; WHITE BLOOD COUNT 8.4 10^3/uL (4.0-10.5)
[2017-08-10] MEDS ORDERED: MORPHINE SULFATE 10 MG/ML INJ IV ONE (05:02)
[2017-08-10 05:13] LABS: ANION GAP 14 (5-19); BLOOD UREA NITROGEN 14 mg/dL (7-20); CARBON DIOXIDE 28 mmol/L (22-30); CHLORIDE 90 mmol/L (98-107); POTASSIUM 4.4 mmol/L (3.6-5.0)
[2017-08-10 05:26] LABS: GLUCOSE 759 mg/dL (75-110)
--- NOTE | 2017-08-10 05:26 | RADIOLOGY REPORT (SQ) ---
EXAM DESCRIPTION: FOOT RIGHT 2 VIEWS CLINICAL HISTORY: 27 years, Female, 5th toe infection COMPARISON: 3.20.18 NUMBER OF VIEWS: 2 LIMITATIONS: None. FINDINGS: Moderate swelling, soft tissue skin defect/ulceration, and new moderate bone demineralization at the lateral right fifth interphalangeal joint. Remaining right foot appears intact. IMPRESSION: Osteomyelitis pattern of the right 5th IP joint.
[2017-08-10] MEDS ORDERED: GLUCAGON,HUMAN RECOMB 1 MG INJ SUBCUT PRN (07:37)
[2017-08-10] MEDS ORDERED: DEXTROSE 50%-WATER 25 GM/50 ML DISP.SYRIN IV PRN ×2 (07:37)
[2017-08-10] MEDS ORDERED: DEXTROSE 40% GEL 15 GM TUBE PO PRN ×2 (07:37)
[2017-08-10] MEDS ORDERED: VANCOMYCIN HCL 0 MG in DEXTROSE 5%-WATER 250 ML IV NR (07:45)
[2017-08-10] MEDS ORDERED: IPRATROPIUM/ALBUTEROL 0.5-2.5 MG/3 ML AMPUL NEB PRN (07:58)
[2017-08-10] MEDS ORDERED: PROMETHAZINE HCL INJ 25 MG/1 ML VIAL IV PRN ×2 (07:58→10:52)
[2017-08-10] MEDS ORDERED: ONDANSETRON HCL INJ/PF 4 MG/2 ML SDV IV PRN (07:58)
[2017-08-10] MEDS ORDERED: ACETAMINOPHEN 325 MG TABLET PO PRN (07:58)
--- NOTE | 2017-08-10 09:36 | PDOC CONSULTATION ---
Consultation Consult Date: 08/10/17 Consult reason:: Osteomyelitis and abscess of the right fifth toe. History of Present Illness Admission Date/PCP: 08/10/17 06:36 JODIE DIAS MD Patient complains of: Fevers, chills. Abscess, swelling of the right fifth toe. History of Present Illness: RAGHAVENDRA PEREZ is a 27 year old female with uncontrolled diabetes. She has been treated for osteomyelitis of the right fifth toe for several weeks now. Her PICC line was recently removed because her antibiotics were finished. After PICC line removal, her swelling, erythema, and pain worsened. Her symptoms have been progressing for the last 7-10 days. Over the last 2-3 days, she has experienced fevers, chills, malaise, fatigue. Upon admission to the ER today, her sugars were found to be in the 700 range. Nothing makes her pain better. Palpation and walking make her pain worse. Past Medical History Cardiac Medical History: Reports: None Pulmonary Medical History: Reports: None EENT Medical History: Reports: None Neurological Medical History: Reports: None Endocrine Medical History: Reports: Diabetes Mellitus Type 1 - Uncontrolled Renal/ Medical History: Reports: None Malignancy Medical History: Reports: None GI Medical History: Reports: None Musculoskeltal Medical History: Reports: None Skin Medical History: Reports: None Psychiatric Medical History: Reports: Substance Abuse, Tobacco Dependency Denies: Depression Traumatic Medical History: Reports: None Hematology: Reports: None Infectious Medical History: Reports: None Past Surgical History Past Surgical History: Reports: Section, Orthopedic Surgery - R humerus repair, Other - Surgery on Right arm due to Fracture. Social History Lives with: Family Smoking Status: Current Every Day Smoker Cigarettes Packs Per Day: 0.3 Frequency of Alcohol Use: None Hx Recreational Drug Use: Yes - quit 2011 Hx Prescription Drug Abuse: No - Advance Directive Resuscitation Status: Full Code Family History Family History: Reviewed & Not Pertinent, DM Parental Family History Reviewed: Yes Children Family History Reviewed: Yes Sibling(s) Family History Reviewed.: Yes Medication/Allergy Home Medications: Insulin Aspart [Novolog Insulin (Aspart) 100 unit/mL] See Protocol SQ MEALS 09/29 Insulin Glargine,Hum.rec.anlog [Lantus Insulin 100 Unit/1 ml 10 ml] 36 units SQ QHS 05/20/17 Acetaminophen [Tylenol 325 mg Tablet] 650 mg PO Q6HP PRN tablet 05/26/17 Levofloxacin/D5w [Levofloxacin 750 mg/150 ml-D5w] 750 mg IV DAILY 60 Days piggyback 05/26/17 Vancomycin/0.9 % Sod Chloride [Vanco 2 Gram/500 ml-0.9% NaCl] 2 gm IV DAILY 60 Days plast..bag 05/26/17 Allergies/Adverse Reactions: No Known Allergies Allergy (Verified 07/09/17 14:30) Review of Systems Constitutional: PRESENT: chills, fatigue, fever(s), night sweats, weakness. ABSENT: headache(s) Eyes: ABSENT: visual disturbances Ears: ABSENT: hearing changes Nose, Mouth, and Throat: ABSENT: sore throat Cardiovascular: ABSENT: chest pain, dyspnea on exertion Respiratory: ABSENT: cough, dyspnea, hemoptysis Gastrointestinal: ABSENT: abdominal pain, constipation, diarrhea, dysphagia, heartburn, hematemesis, hematochezia, melena, nausea Genitourinary: ABSENT: dysuria Musculoskeletal: PRESENT: joint swelling - Right fifth toe Integumentary: PRESENT: erythema - Right fifth toe Neurological: ABSENT: abnormal gait, dizziness, focal weakness, memory loss, paresthesias Psychiatric: ABSENT: anxiety, depression, hallucinations Endocrine: ABSENT: cold intolerance, heat intolerance Hematologic/Lymphatic: ABSENT: easy bleeding, easy bruising Physical Exam Vital Signs: Temp Pulse Resp BP Pulse Ox 98.7 F 94 16 97/57 L 96 08/10/17 05:38 08/10/17 08:45 08/10/17 08:45 08/10/17 05:38 08/10/17 08:45 General appearance: PRESENT: no acute distress Head exam: PRESENT: atraumatic, normocephalic Eye exam: PRESENT: EOMI, PERRLA. ABSENT: conjunctival injection, scleral icterus Mouth exam: PRESENT: moist, neck supple Neck exam: ABSENT: tenderness, thyromegaly, tracheal deviation Respiratory exam: ABSENT: chest wall tenderness, clear to auscultation jey, rales, retraction, rhonchi, stridor Cardiovascular exam: ABSENT: RRR Pulses: PRESENT: other - Weak, but palpable dorsalis pedis pulse on the right. 2+ posterior tibial pulse on the right. Vascular exam: PRESENT: normal capillary refill. ABSENT: pallor GI/Abdominal exam: PRESENT: normal bowel sounds, soft. ABSENT: distended, guarding, tenderness Extremities exam: PRESENT: joint swelling - Right fifth toe, pedal edema - Right foot, tenderness - Right fifth toe Musculoskeletal exam: PRESENT: tenderness - Right foot/fifth toe Neurological exam: PRESENT: alert, awake, oriented to person, oriented to place , oriented to time, CN II-XII grossly intact, normal gait. ABSENT: motor sensory deficit Psychiatric exam: PRESENT: normal mood. ABSENT: agitated, anxious, depressed Skin exam: PRESENT: erythema - Right foot. ABSENT: jaundice, rash Results Impressions: Foot X-Ray 08/10/17 04:08 IMPRESSION: Osteomyelitis pattern of the right 5th IP joint. Assessment & Plan - Diagnosis (1) Cellulitis of right foot Is this a current diagnosis for this admission?: Yes (2) Osteomyelitis of toe of right foot Is this a current diagnosis for this admission?: Yes (3) DM type 1 (diabetes mellitus, type 1) Qualifiers: Diabetes mellitus complication status: with other specified complication Qualified Code(s): E10.69 - Type 1 diabetes mellitus with other specified complication Is this a current diagnosis for this admission?: Yes - Plan Summary Plan Summary: This is a 27-year-old female with severe, uncontrolled diabetes. She has been treated for osteomyelitis of the right fifth toe for several weeks now. Her PICC line was recently removed. She has experienced recurrence of her symptoms. She now exhibits an abscess of the right fifth toe with continued destruction of the bone. I have recommended amputation of the right fifth toe as definitive treatment. The patient has agreed to this. Plan for right fifth toe amputation in the OR today. Continue antibiotics. Continue tight glucose control.
[2017-08-10] MEDS ORDERED: DEXTROSE 5%-LACTATED RINGERS 1,000 ML IV ONE (09:45)
[2017-08-10] MEDS ORDERED: DEXTROSE 50%-WATER 25 GM/50 ML DISP.SYRIN IV ONE (10:00)
[2017-08-10] MEDS ORDERED: FENTANYL CITRATE INJ/PF 100 MCG/2 ML AMPUL ONE (10:19)
[2017-08-10] MEDS ORDERED: ACETAMINOPHEN 100 ML IV ONE (10:20)
[2017-08-10] MEDS ORDERED: PROPOFOL INJ 200 MG/20 ML VIAL IV ONE (10:20)
[2017-08-10] MEDS ORDERED: MIDAZOLAM 2 MG/2 ML INJ ONE (10:20)
[2017-08-10] MEDS ORDERED: BUPIVACAINE HCL 0.25 % INJ/PF (2.5 MG/1 ML) 30 ML VIAL INJ ONE ×2 (10:42)
[2017-08-10] MEDS ORDERED: MEPERIDINE HCL/PF INJ 25 MG/1 ML DISP.SYRIN IV PRN (10:52)
[2017-08-10] MEDS ORDERED: FENTANYL CITRATE INJ/PF 100 MCG/2 ML AMPUL IV PRN ×3 (10:52)
[2017-08-10] MEDS ORDERED: DIPHENHYDRAMINE HCL 50 MG/ML VIAL IV PRN (10:52)
--- NOTE | 2017-08-10 10:53 | PDOC H&P ---
History of Present Illness Admission Date/PCP: 08/10/17 06:36 JODIE DIAS MD Patient complains of: Rt foot cellulitis History of Present Illness: RAGHAVENDRA PEREZ is a 27 year old female with a past medical history of insulin- dependent diabetes mellitus and tobacco dependence presented to the emergency department last night with a complaint of right toe pain. She reported that she is seen by Dr. Snider for diabetic foot wound to the right foot. She states that she previously had a PICC line and was on vancomycin. She states that the antibiotic was stopped approximately 2 weeks ago. She reports that beginning 3-4 days ago she began having increased pain to the foot with gradually worsening erythema and edema. She states that she has began having chills but no documented fever, and uncontrolled blood sugars, which prompted her to be evaluated by the emergency department last night. Evaluation in the emergency department reveals a normal white count, mild hyponatremia, and elevated blood glucose of 759. Imaging demonstrated osteomyelitis pattern of the right fifth IP joint. Surgery was consulted and plan to take the patient to the operating room today for amputation of the toe. She is referred to the hospitalist services for admission and management of her diabetes mellitus and osteomyelitis. Past Medical History Cardiac Medical History: Reports: None Pulmonary Medical History: Reports: None EENT Medical History: Reports: None Neurological Medical History: Reports: None Endocrine Medical History: Reports: Diabetes Mellitus Type 1 Renal/ Medical History: Reports: None Malignancy Medical History: Reports: None GI Medical History: Reports: None Musculoskeltal Medical History: Reports: None Skin Medical History: Reports: None Psychiatric Medical History: Reports: Substance Abuse, Tobacco Dependency Denies: Depression Traumatic Medical History: Reports: None Hematology: Reports: None Infectious Medical History: Reports: None Past Surgical History Past Surgical History: Reports: Section, Orthopedic Surgery - R humerus repair Social History Information Source: Patient Lives with: Family Smoking Status: Current Every Day Smoker Cigarettes Packs Per Day: 0.3 Frequency of Alcohol Use: None Hx Recreational Drug Use: Yes - quit 2011 Hx Prescription Drug Abuse: No - Advance Directive Resuscitation Status: Full Code Family History Family History: DM Parental Family History Reviewed: Yes Children Family History Reviewed: Yes Sibling(s) Family History Reviewed.: Yes Medication/Allergy Home Medications: Insulin Aspart [Novolog Insulin (Aspart) 100 unit/mL] See Protocol SQ MEALS 09/29 Insulin Glargine,Hum.rec.anlog [Lantus Insulin 100 Unit/1 ml 10 ml] 36 units SQ QHS 05/20/17 Acetaminophen [Tylenol 325 mg Tablet] 650 mg PO Q6HP PRN tablet 05/26/17 Levofloxacin/D5w [Levofloxacin 750 mg/150 ml-D5w] 750 mg IV DAILY 60 Days piggyback 05/26/17 Vancomycin/0.9 % Sod Chloride [Vanco 2 Gram/500 ml-0.9% NaCl] 2 gm IV DAILY 60 Days plast..bag 05/26/17 Allergies/Adverse Reactions: No Known Allergies Allergy (Verified 07/09/17 14:30) Review of Systems Constitutional: PRESENT: chills, fever(s). ABSENT: headache(s), weight gain, weight loss Eyes: ABSENT: visual disturbances Ears: ABSENT: hearing changes Cardiovascular: ABSENT: chest pain, dyspnea on exertion, edema, orthropnea, palpitations Respiratory: ABSENT: cough, hemoptysis Gastrointestinal: ABSENT: abdominal pain, constipation, diarrhea, hematemesis, hematochezia, nausea, vomiting Genitourinary: ABSENT: dysuria, hematuria Musculoskeletal: ABSENT: joint swelling Integumentary: PRESENT: wounds - Rt great toe wound with erythema/edema to foot. ABSENT: rash Neurological: ABSENT: abnormal gait, abnormal speech, confusion, dizziness, focal weakness, syncope Psychiatric: ABSENT: anxiety, depression, homidical ideation, suicidal ideation Endocrine: PRESENT: other - difficulty w/ elevated blood sugar control. ABSENT : cold intolerance, heat intolerance, polydipsia, polyuria Hematologic/Lymphatic: ABSENT: easy bleeding, easy bruising Physical Exam Vital Signs: Temp Pulse Resp BP Pulse Ox 98.7 F 92 16 97/57 L 95 08/10/17 05:38 08/10/17 05:38 08/10/17 05:38 08/10/17 05:38 08/10/17 05:38 General appearance: PRESENT: no acute distress, cooperative, well-developed, well-nourished Head exam: PRESENT: atraumatic, normocephalic Eye exam: PRESENT: conjunctiva pink, EOMI, PERRLA. ABSENT: scleral icterus Ear exam: PRESENT: normal external ear exam Mouth exam: PRESENT: moist, tongue midline Neck exam: ABSENT: carotid bruit, JVD, lymphadenopathy, thyromegaly Respiratory exam: PRESENT: clear to auscultation jey, symmetrical, unlabored. ABSENT: rales, rhonchi, wheezes Cardiovascular exam: PRESENT: RRR, +S1, +S2. ABSENT: diastolic murmur, rubs, systolic murmur Pulses: PRESENT: normal dorsalis pedis pul Vascular exam: PRESENT: normal capillary refill GI/Abdominal exam: PRESENT: normal bowel sounds, soft. ABSENT: distended, guarding, mass, organolmegaly, rebound, tenderness Rectal exam: PRESENT: deferred Extremities exam: PRESENT: full ROM. ABSENT: calf tenderness, clubbing, pedal edema Neurological exam: PRESENT: alert, awake, oriented to person, oriented to place , oriented to time, oriented to situation, CN II-XII grossly intact. ABSENT: motor sensory deficit Psychiatric exam: PRESENT: appropriate affect, normal mood. ABSENT: homicidal ideation, suicidal ideation Skin exam: PRESENT: dry, warm, other - wound to medial aspect of Rt great toe. Erythema and edema to foot and extending slightly up the anterior aspect of her lower leg. No drainage present.. ABSENT: cyanosis, intact, rash Results Impressions: Foot X-Ray 08/10/17 04:08 IMPRESSION: Osteomyelitis pattern of the right 5th IP joint. Assessment & Plan - Diagnosis (1) Osteomyelitis of toe of right foot Is this a current diagnosis for this admission?: Yes Plan: Blood and wound cultures are pending. The patient will be admitted to the medical floor on continuous cardiac telemetry. Surgery has been consulted and plans for toe amputation today. Appreciate their evaluation and assistance. She is empirically placed on IV vancomycin based upon previous wound cultures of the same wound. Will adjust antibiotics as repeat cultures result. Antiemetics and pain medications are available as needed. (2) DM type 1 (diabetes mellitus, type 1) Qualifiers: Diabetes mellitus complication status: with other specified complication Qualified Code(s): E10.69 - Type 1 diabetes mellitus with other specified complication Is this a current diagnosis for this admission?: Yes Plan: Hemoglobin A1c from May is noted to be 13.1. Will repeat value with a.m. labs. She was initially found to be hyperglycemic with a glucose of 759. Fortunately she is not acidotic. She will be provided IV maintenance fluids. Will continue her home dose of Lantus 36 units nightly. She is n.p.o. currently but will be placed on consistent carb diet following surgery. Accu-Cheks before meals and at bedtime with Humalog for sliding scale coverage. We will ask the registered dietitian and health promotion educator to meet with the patient. (3) Tobacco dependence Is this a current diagnosis for this admission?: Yes Plan: Smoking cessation is encouraged. Nicotine replacement therapy is provided. (4) DVT prophylaxis Is this a current diagnosis for this admission?: Yes Plan: Heparin. Encourage early ambulation. - Time Time Spent: 50 to 70 Minutes Medications reviewed and adjusted accordingly: Yes Anticipated discharge: Home - Inpatient Certification Based on my medical assessment, after consideration of the patient's comorbidities, presenting symptoms, or acuity I expect that the services needed warrant INPATIENT care.: Yes I certify that my determination is in accordance with my understanding of Medicare's requirements for reasonable and necessary INPATIENT services [42 CFR 412.3e].: Yes Medical Necessity: Need For IV Fluids, Need for IV Antibiotics, Need for Surgery
[2017-08-10] MEDS ORDERED: ONDANSETRON HCL INJ/PF 4 MG/2 ML SDV ONE (10:56)
[2017-08-10] MEDS ORDERED: LIDOCAINE 2% INJ-PF (20 MG/ML) 2 ML AMPUL ONE (10:56)
--- NOTE | 2017-08-10 11:10 | Operative Report ---
Nonrecallable Operative Report DATE OF SURGERY: 08/10/17 PREOPERATIVE DIAGNOSIS: 1. Osteomyelitis of the right fifth toe. 2. Diabetic foot infection with abscess of the right fifth toe POSTOPERATIVE DIAGNOSIS: Same as above OPERATION: Ray amputation of the right fifth toe SURGEON: RANDOLPH CARDENAS ANESTHESIA: GA TISSUE REMOVED OR ALTERED: 1. Wound culture. 2. Bone biopsy COMPLICATIONS: None apparent ESTIMATED BLOOD LOSS: Minimal PROCEDURE: After informed consent was obtained, the patient was laid in the supine position. The area of the right foot was prepped and draped in a normal sterile fashion. Quarter percent Marcaine was used to infiltrate the area of the right fifth toe. A tennis racquet incision was then created. The toe was removed from the metatarsal head using sharp dissection. There was a moderate amount of purulent material encountered during the dissection. Once the toe was removed, the soft tissue was cleared away from the metatarsal head. Metatarsal head was removed using large bone cutters in order to remove all cartilaginous surfaces. Once this was complete, the deep tissue was closed using 2-0 Vicryl suture in simple interrupted fashion. The skin was left open secondary to the presence of purulence. A dressing was fashioned, and the procedure was concluded. All sponge, instrument, and needle counts were correct 2. Condition: Fair.
[2017-08-10] MEDS ORDERED: BUPIVACAINE HCL 0.25 % INJ/PF (2.5 MG/1 ML) 30 ML VIAL ONE (11:26)
[2017-08-10] MEDS: NORMAL SALINE 1000 ML 1,000 ML IV PRN ×2 (13:29→23:24)
[2017-08-10] MEDS: HEPARIN SOD (PORCINE) 5,000 UNIT/ML 1 ML SYRINGE SUBCUT SCH ×2 (13:31→21:18)
[2017-08-10] MEDS: FAMOTIDINE 20 MG TABLET PO SCH ×2 (13:32→21:17)
[2017-08-10] MEDS: VANCOMYCIN HCL 1,000 MG in DEXTROSE 5%-WATER 250 ML IV SCH ×2 (14:17→21:17)
[2017-08-10] MEDS: INSULIN LISPRO 100 UNIT/ML 3 ML VIAL SUBCUT PRN (18:24)
[2017-08-10] MEDS: OXYCODONE-ACETAMINOPHEN 5-325 MG TABLET PO PRN (18:26)
[2017-08-10] MEDS: INSULIN GLARGINE,HUM.REC.ANLOG 1,000 UNIT/10 ML UNIT SUBCUT SCH (21:17)
[2017-08-10] MEDS ORDERED: INSULIN GLARGINE,HUM.REC.ANLOG 1,000 UNIT/10 ML UNIT SUBCUT SCH ×2 (22:00)
[2017-08-11] MEDS: OXYCODONE-ACETAMINOPHEN 5-325 MG TABLET PO PRN ×2 (02:11→21:53)
[2017-08-11 04:20] LABS: ANION GAP 9 (5-19); BLOOD UREA NITROGEN 10 mg/dL (7-20); CALCIUM 8.2 mg/dL (8.4-10.2); CARBON DIOXIDE 29 mmol/L (22-30); CHLORIDE 102 mmol/L (98-107); GLUCOSE 165 mg/dL (75-110); POTASSIUM 4.3 mmol/L (3.6-5.0); SODIUM 139.5 mmol/L (137-145)
[2017-08-11] MEDS: HEPARIN SOD (PORCINE) 5,000 UNIT/ML 1 ML SYRINGE SUBCUT SCH ×3 (05:06→21:54)
[2017-08-11] MEDS: VANCOMYCIN HCL 1,000 MG in DEXTROSE 5%-WATER 250 ML IV SCH ×3 (05:07→21:52)
[2017-08-11 05:56] LABS: ABSOLUTE EOSINOPHILS # (AUTO) 0.4 10^3/uL (0.0-0.6); ABSOLUTE LYMPHOCYTES (AUTO) 2.7 10^3/uL (0.5-4.7); ABSOLUTE MONOCYTES (AUTO) 0.7 10^3/uL (0.1-1.4); ABSOLUTE NEUT (AUTO) 4.9 10^3/uL (1.7-8.2); BASOPHILS % (AUTO) 0.5 % (0-2); EOSINOPHILS % (AUTO) 4.4 % (0-6); HEMATOCRIT 31.2 % (36.0-47.0); HEMOGLOBIN 10.6 g/dL (12.0-15.5); LYMPHOCYTES % (AUTO) 31.2 % (13-45); MEAN CORPUSCULAR HEMOGLOBIN 27.1 pg (27.0-33.4); MEAN CORPUSCULAR HGB CONC 33.9 g/dL (32.0-36.0); MONOCYTES % (AUTO) 7.6 % (3-13); PLATELET COUNT 223 10^3/uL (150-450); RED CELL DISTRIBUTION WIDTH 13.5 % (11.5-14.0); SEGMENTED NEUTROPHILS % (AUTO) 56.3 % (42-78); TOTAL CELLS COUNTED % (AUTO) 100 %; WHITE BLOOD COUNT 8.7 10^3/uL (4.0-10.5)
[2017-08-11 05:59] LABS: MEAN CORPUSCULAR VOLUME 80 fl (80-97)
[2017-08-11] MEDS: INSULIN LISPRO 100 UNIT/ML 3 ML VIAL SUBCUT PRN ×3 (07:43→21:54)
[2017-08-11] MEDS: NICOTINE 7 MG/24 HR PATCH.TD24 TD SCH (10:45)
[2017-08-11] MEDS: FAMOTIDINE 20 MG TABLET PO SCH ×2 (10:46→21:53)
[2017-08-11] MEDS: MORPHINE SULFATE 10 MG/ML INJ IV PRN ×2 (10:46→17:10)
[2017-08-11] MEDS ORDERED: ONDANSETRON HCL INJ/PF 4 MG/2 ML SDV IV PRN (12:00)
--- NOTE | 2017-08-11 12:05 | PDOC PROGRESS REPORT ---
Subjective Progress Note for:: 08/11/17 Reason For Visit: OSTEOMYELITIS, IDDM Doing well, very lethargic. Still in the ICU awaiting transfer to floor. Physical Exam Vital Signs: Temp Pulse Resp BP Pulse Ox 98.4 F 84 15 98/71 L 95 08/11/17 11:18 08/11/17 11:18 08/11/17 11:18 08/11/17 11:18 08/11/17 11:18 Intake & Output 08/10/17 08/11/17 08/12/17 06:59 06:59 06:59 Intake Total 3085 450 Output Total 1675 Balance 1410 450 Weight 75.1 kg General appearance: PRESENT: no acute distress Extremities exam: PRESENT: other - Dressing removed, wound clean, no granulation tissue yet no foul-smelling drainage; no foot cellulitis Results Laboratory Results: 08/11/17 05:44 08/11/17 03:51 08/11/17 08/11/17 08/11/17 03:51 03:51 05:44 WBC Cancelled 8.7 RBC Cancelled 3.90 Hgb Cancelled 10.6 L Hct Cancelled 31.2 L MCV Cancelled 80 D MCH Cancelled 27.1 MCHC Cancelled 33.9 RDW Cancelled 13.5 Plt Count Cancelled 223 Seg Neutrophils % Cancelled 56.3 Lymphocytes % Cancelled 31.2 Monocytes % Cancelled 7.6 Eosinophils % Cancelled 4.4 Basophils % Cancelled 0.5 Absolute Neutrophils Cancelled 4.9 Absolute Lymphocytes Cancelled 2.7 Absolute Monocytes Cancelled 0.7 Absolute Eosinophils Cancelled 0.4 Absolute Basophils Cancelled 0.0 Sodium 139.5 Potassium 4.3 Chloride 102 Carbon Dioxide 29 Anion Gap 9 BUN 10 Creatinine 0.62 Est GFR ( Amer) > 60 Est GFR (Non-Af Amer) > 60 Glucose 165 H Calcium 8.2 L Impressions: Foot X-Ray 08/10/17 04:08 IMPRESSION: Osteomyelitis pattern of the right 5th IP joint. Assessment & Plan - Diagnosis (1) Osteomyelitis of toe of right foot Is this a current diagnosis for this admission?: Yes Plan: 1 day status post right toe debridement including metatarsal head, with partial closure, doing well thus far. Recommendations: 1. We will start regular dressing changes, pressure offloading, surgical boot. 2. Patient growing polymicrobial infection; hopefully can consolidate intravenous antibiotics. 3. We will continue to follow this wound until patient is up and ambulating.
--- NOTE | 2017-08-11 13:51 | PDOC PROGRESS REPORT ---
Subjective Progress Note for:: 08/11/17 Subjective:: Patient is a 27 year old female with a past medical history of uncontrolled type one diabetes mellitus and tobacco dependence who was admitted yesterday for worsening osteomyelitus and cellulitis of a chronic foot wound that failed outpatient antibiotics. She is no POD #1 s/p Rt 5th toe amputation. She is seen on morning rounds. She is found resting in bed comfortably on room air. She is sleeping when I enter the room but wakes easily. She denies fever , chills, body aches, chest pain, palpitation, dyspnea, orthopnea, abd pain, nausea and vomiting. She has no new questions or concerns today. Reason For Visit: OSTEOMYELITIS, IDDM Physical Exam Vital Signs: Temp Pulse Resp BP Pulse Ox 98.4 F 84 16 98/71 L 95 08/11/17 11:18 08/11/17 11:18 08/11/17 13:00 08/11/17 11:18 08/11/17 11:18 Intake & Output 08/10/17 08/11/17 08/12/17 06:59 06:59 06:59 Intake Total 3085 450 Output Total 1675 1100 Balance 1410 -650 Weight 75.1 kg General appearance: PRESENT: no acute distress, well-developed, well-nourished Head exam: PRESENT: atraumatic, normocephalic Eye exam: PRESENT: conjunctiva pink, EOMI, PERRLA. ABSENT: scleral icterus Ear exam: PRESENT: normal external ear exam Mouth exam: PRESENT: moist, tongue midline Neck exam: ABSENT: carotid bruit, JVD, lymphadenopathy, thyromegaly Respiratory exam: PRESENT: clear to auscultation jey, symmetrical, unlabored. ABSENT: rales, rhonchi, wheezes Cardiovascular exam: PRESENT: RRR. ABSENT: diastolic murmur, rubs, systolic murmur Pulses: PRESENT: normal dorsalis pedis pul Vascular exam: PRESENT: normal capillary refill GI/Abdominal exam: PRESENT: normal bowel sounds, soft. ABSENT: distended, guarding, mass, organolmegaly, rebound, tenderness Rectal exam: PRESENT: deferred Extremities exam: PRESENT: full ROM. ABSENT: calf tenderness, clubbing, pedal edema Neurological exam: PRESENT: alert, awake, oriented to person, oriented to place , oriented to time, oriented to situation, CN II-XII grossly intact. ABSENT: motor sensory deficit Psychiatric exam: PRESENT: appropriate affect, normal mood. ABSENT: homicidal ideation, suicidal ideation Skin exam: PRESENT: dry, warm. ABSENT: cyanosis, intact - Surgical site not visualized; dressing in place. No erythema noted to heel of foot or lower leg. , rash Results Laboratory Results: 08/11/17 05:44 08/11/17 03:51 08/11/17 08/11/17 08/11/17 03:51 03:51 05:44 WBC Cancelled 8.7 RBC Cancelled 3.90 Hgb Cancelled 10.6 L Hct Cancelled 31.2 L MCV Cancelled 80 D MCH Cancelled 27.1 MCHC Cancelled 33.9 RDW Cancelled 13.5 Plt Count Cancelled 223 Seg Neutrophils % Cancelled 56.3 Lymphocytes % Cancelled 31.2 Monocytes % Cancelled 7.6 Eosinophils % Cancelled 4.4 Basophils % Cancelled 0.5 Absolute Neutrophils Cancelled 4.9 Absolute Lymphocytes Cancelled 2.7 Absolute Monocytes Cancelled 0.7 Absolute Eosinophils Cancelled 0.4 Absolute Basophils Cancelled 0.0 Sodium 139.5 Potassium 4.3 Chloride 102 Carbon Dioxide 29 Anion Gap 9 BUN 10 Creatinine 0.62 Est GFR ( Amer) > 60 Est GFR (Non-Af Amer) > 60 Glucose 165 H Calcium 8.2 L Impressions: Foot X-Ray 08/10/17 04:08 IMPRESSION: Osteomyelitis pattern of the right 5th IP joint. Assessment & Plan - Diagnosis (1) Osteomyelitis of toe of right foot Is this a current diagnosis for this admission?: Yes Plan: POD #1 Rt 5th toe amputation. Blood and wound cultures demonstrating polymicrobial growth: Gram neg rods, Group B Beta strep, Gram positive cocci. The patient will be admitted to the medical floor on continuous cardiac telemetry. Surgery has been consulted; now s/p 5th toe amputation. Appreciate their evaluation and assistance. She is empirically placed on IV Vancomycin and Rocephin. Previous culture results were reviewed to assist with guidance. Will adjust antibiotics as sensitivities result. Antiemetics and pain medications are available as needed. (2) DM type 1 (diabetes mellitus, type 1) Qualifiers: Diabetes mellitus complication status: with other specified complication Qualified Code(s): E10.69 - Type 1 diabetes mellitus with other specified complication Is this a current diagnosis for this admission?: Yes Plan: Hemoglobin A1c from May is noted to be 13.1; has improved to 11.4% She will be provided IV maintenance fluids. Will continue her home dose of Lantus 36 units nightly. Consistent carb diet. Accu-Cheks before meals and at bedtime with Humalog for sliding scale coverage. We will ask the registered dietitian and title camera operator to meet with the patient. (3) Tobacco dependence Is this a current diagnosis for this admission?: Yes Plan: Smoking cessation is encouraged. Nicotine replacement therapy is provided. (4) DVT prophylaxis Is this a current diagnosis for this admission?: Yes Plan: Heparin. Encourage early ambulation. (5) Anemia Qualifiers: Anemia type: unspecified type Qualified Code(s): D64.9 - Anemia, unspecified Is this a current diagnosis for this admission?: Yes Plan: Hgb decreased to 10.6 following surgery; likely a combination of surgical procedure and IVF. No signs of active bleeding. Will continue to monitor. - Time Time Spent with patient: 25-34 minutes Medications reviewed and adjusted accordingly: Yes - Inpatient Certification Based on my medical assessment, after consideration of the patient's comorbidities, presenting symptoms, or acuity I expect that the services needed warrant INPATIENT care.: Yes I certify that my determination is in accordance with my understanding of Medicare's requirements for reasonable and necessary INPATIENT services [42 CFR 412.3e].: Yes Medical Necessity: Need for IV Antibiotics, Need for Surgery
[2017-08-11 14:21] LABS: VANCOMYCIN,TROUGH 10.1 ug/mL (5.0-20.0)
[2017-08-11] MEDS: NORMAL SALINE 1000 ML 1,000 ML IV PRN (15:04)
[2017-08-11] MEDS: INSULIN GLARGINE,HUM.REC.ANLOG 1,000 UNIT/10 ML UNIT SUBCUT SCH (21:53)
[2017-08-12] MEDS: VANCOMYCIN HCL 1,000 MG in DEXTROSE 5%-WATER 250 ML IV SCH ×4 (02:30→22:01)
[2017-08-12] MEDS: MORPHINE SULFATE 10 MG/ML INJ IV PRN ×4 (04:08→21:22)
[2017-08-12 04:14] LABS: ABSOLUTE EOSINOPHILS # (AUTO) 0.3 10^3/uL (0.0-0.6); ABSOLUTE LYMPHOCYTES (AUTO) 2.8 10^3/uL (0.5-4.7); ABSOLUTE MONOCYTES (AUTO) 0.5 10^3/uL (0.1-1.4); ABSOLUTE NEUT (AUTO) 4.1 10^3/uL (1.7-8.2); BASOPHILS % (AUTO) 0.4 % (0-2); EOSINOPHILS % (AUTO) 3.6 % (0-6); HEMATOCRIT 32.9 % (36.0-47.0); LYMPHOCYTES % (AUTO) 36.4 % (13-45); MEAN CORPUSCULAR HEMOGLOBIN 26.5 pg (27.0-33.4); MEAN CORPUSCULAR HGB CONC 33.3 g/dL (32.0-36.0); MEAN CORPUSCULAR VOLUME 80 fl (80-97); MONOCYTES % (AUTO) 6.8 % (3-13); PLATELET COUNT 248 10^3/uL (150-450); RED BLOOD COUNT 4.14 10^6/uL (3.72-5.28); RED CELL DISTRIBUTION WIDTH 13.3 % (11.5-14.0); SEGMENTED NEUTROPHILS % (AUTO) 52.8 % (42-78); TOTAL CELLS COUNTED % (AUTO) 100 %; WHITE BLOOD COUNT 7.8 10^3/uL (4.0-10.5)
[2017-08-12 04:34] LABS: ANION GAP 10 (5-19); BLOOD UREA NITROGEN 8 mg/dL (7-20); CALCIUM 8.3 mg/dL (8.4-10.2); CARBON DIOXIDE 27 mmol/L (22-30); CHLORIDE 101 mmol/L (98-107); GLUCOSE 216 mg/dL (75-110); POTASSIUM 4.1 mmol/L (3.6-5.0); SODIUM 137.7 mmol/L (137-145)
[2017-08-12] MEDS: NORMAL SALINE 1000 ML 1,000 ML IV PRN (05:23)
[2017-08-12] MEDS: HEPARIN SOD (PORCINE) 5,000 UNIT/ML 1 ML SYRINGE SUBCUT SCH ×3 (05:24→22:00)
[2017-08-12] MEDS ORDERED: CEFTRIAXONE 1 GM/D5W RTU 1 GM/50 ML RTUPB IV SCH (10:00)
[2017-08-12] MEDS ORDERED: CEFTRIAXONE SODIUM 1,000 MG in DEXTROSE 5%-WATER 50 ML IV SCH (10:00)
[2017-08-12] MEDS: FAMOTIDINE 20 MG TABLET PO SCH ×2 (10:46→22:01)
[2017-08-12] MEDS: NICOTINE 7 MG/24 HR PATCH.TD24 TD SCH (10:47)
[2017-08-12] MEDS: INSULIN LISPRO 100 UNIT/ML 3 ML VIAL SUBCUT PRN ×4 (11:06→22:00)
--- NOTE | 2017-08-12 16:35 | PDOC PROGRESS REPORT ---
Subjective Progress Note for:: 08/12/17 Subjective:: Patient is a 27 year old female with a past medical history of uncontrolled Type 1 DM and tobacco dependence who was admitted for worsening osteomyelitis and cellulitis of a chronic foot wound that failed outpatient IV antibiotics. She is no POD #2 s/p Rt 5th toe amputation. The patient was seen this morning on rounds, she was sleeping but easily abusable. She denied pain or parasthesia in the R foot. Mild erythema surrounding the incision site and minimal serosanguenous drainage. The wound has been left open, edges , covered with Vaseline gauze and kerlix. Reason For Visit: OSTEOMYELITIS, IDDM Physical Exam Vital Signs: Temp Pulse Resp BP Pulse Ox 99.6 F 93 20 101/62 88 L 08/12/17 13:54 08/12/17 13:54 08/12/17 13:54 08/12/17 13:54 08/12/17 13:54 Intake & Output 08/11/17 08/12/17 08/13/17 06:59 06:59 06:59 Intake Total 3085 4375 350 Output Total 1675 4000 Balance 1410 375 350 Weight 75.1 kg 76 kg General appearance: PRESENT: no acute distress Head exam: PRESENT: atraumatic Eye exam: PRESENT: conjunctiva pink, PERRLA Mouth exam: PRESENT: moist Neck exam: PRESENT: full ROM Respiratory exam: PRESENT: clear to auscultation jey, symmetrical, unlabored Cardiovascular exam: PRESENT: +S1, +S2 Pulses: PRESENT: normal radial pulses, normal dorsalis pedis pul Vascular exam: PRESENT: normal capillary refill GI/Abdominal exam: PRESENT: normal bowel sounds, soft. ABSENT: tenderness Extremities exam: PRESENT: full ROM Musculoskeletal exam: PRESENT: ambulatory, full ROM Neurological exam: PRESENT: alert, awake, oriented to person, oriented to place , oriented to time, oriented to situation Skin exam: PRESENT: intact, normal color, other - open surgical wound to R 5th metatarsal. Minimal serosanguineous drainage. Mild erythema surrounding the surgical incision. Results Laboratory Results: 08/12/17 03:59 08/12/17 03:59 08/12/17 08/12/17 03:59 03:59 WBC 7.8 RBC 4.14 Hgb 11.0 L Hct 32.9 L MCV 80 MCH 26.5 L MCHC 33.3 RDW 13.3 Plt Count 248 Seg Neutrophils % 52.8 Lymphocytes % 36.4 Monocytes % 6.8 Eosinophils % 3.6 Basophils % 0.4 Absolute Neutrophils 4.1 Absolute Lymphocytes 2.8 Absolute Monocytes 0.5 Absolute Eosinophils 0.3 Absolute Basophils 0.0 Sodium 137.7 Potassium 4.1 Chloride 101 Carbon Dioxide 27 Anion Gap 10 BUN 8 Creatinine 0.55 Est GFR ( Amer) > 60 Est GFR (Non-Af Amer) > 60 Glucose 216 H Calcium 8.3 L Impressions: Foot X-Ray 08/10/17 04:08 IMPRESSION: Osteomyelitis pattern of the right 5th IP joint. Status: Imported from PACS Assessment & Plan - Diagnosis (1) Osteomyelitis of toe of right foot Is this a current diagnosis for this admission?: Yes Plan: POD #2 R 5th toe amputation Dr. Segal, of Surgery, ensured me that there is no residual infected bone left , it was all removed during the procedure. Blood and wound cultures demonstrating polymicrobial growth: GNR, Group B Beta Strep, Gram positive cocci Admit to medical floor on continuous cardiac telemetry. Patient empirically placed on vancomycin and Rocephin, previous culture results were reviewed to assist with guidance. Adjust antibiotics as sensitivities resolved. Antiemetics and pain medication as needed Talked to [facility], they did not have much to recommend given the lack of culture sensitivities. They did state that the patient will likely require 3 weeks of IV antibiotic therapy given her previous history of failure and her noncompliance with diabetes treatment, coupled with her inability to quit smoking. (2) DM type 1 (diabetes mellitus, type 1) Qualifiers: Diabetes mellitus complication status: with other specified complication Qualified Code(s): E10.69 - Type 1 diabetes mellitus with other specified complication Is this a current diagnosis for this admission?: Yes Plan: Hemoglobin A1c 11.4%. Has improved since May 2017 (13.1%) Continue IV maintenance fluids. Continue home dose of Lantus 36 units nightly. Consistent carb diet. Accu-Cheks before meals and at bedtime with Humalog for sliding scale coverage, increased sliding scale coverage today in hopes of gaining better control. Plan for cosmetology educator to meet with the patient prior to discharge. (3) Tobacco dependence Is this a current diagnosis for this admission?: Yes Plan: Smoking cessation is encouraged. Nicotine replacement therapy is provided (4) DVT prophylaxis Is this a current diagnosis for this admission?: Yes Plan: Heparin SC for DVT PPX Encourage early ambulation (5) Anemia Qualifiers: Anemia type: unspecified type Qualified Code(s): D64.9 - Anemia, unspecified Is this a current diagnosis for this admission?: Yes Plan: Hemoglobin decreased to 10.6 following surgery, has stabilized to 11.0. Likely combination of surgical procedure and IVF. No signs of active bleeding - Time Time Spent with patient: 15-24 minutes Medications reviewed and adjusted accordingly: Yes Anticipated discharge: Home - Inpatient Certification Based on my medical assessment, after consideration of the patient's comorbidities, presenting symptoms, or acuity I expect that the services needed warrant INPATIENT care.: Yes I certify that my determination is in accordance with my understanding of Medicare's requirements for reasonable and necessary INPATIENT services [42 CFR 412.3e].: Yes Medical Necessity: Need for IV Antibiotics, Risk of Complication if Not Cared For in Hospital - Plan Summary Plan Summary: Ultimately, the plan is to discharge the patient home, however she will likely need up to 3 weeks of IV antibiotics following discharge from the hospital. Will get in touch with discharge planning to start making arrangements.
--- NOTE | 2017-08-12 18:26 | PDOC PROGRESS REPORT ---
Subjective Progress Note for:: 08/12/17 Subjective:: Still with pains right foot surgery site Reason For Visit: OSTEOMYELITIS, IDDM Physical Exam Vital Signs: Temp Pulse Resp BP Pulse Ox 99.7 F 94 12 124/69 92 08/12/17 16:00 08/12/17 16:00 08/12/17 16:00 08/12/17 16:00 08/12/17 16:00 Intake & Output 08/11/17 08/12/17 08/13/17 06:59 06:59 06:59 Intake Total 3085 4375 808 Output Total 1675 4000 Balance 1410 375 808 Weight 75.1 kg 76 kg Exam: Right 5th toe ray amputation site looks good with minimal inflammation though oil process stillman. Opened area about 1 cm looks viable. Results Laboratory Results: 08/12/17 03:59 08/12/17 03:59 08/12/17 08/12/17 03:59 03:59 WBC 7.8 RBC 4.14 Hgb 11.0 L Hct 32.9 L MCV 80 MCH 26.5 L MCHC 33.3 RDW 13.3 Plt Count 248 Seg Neutrophils % 52.8 Lymphocytes % 36.4 Monocytes % 6.8 Eosinophils % 3.6 Basophils % 0.4 Absolute Neutrophils 4.1 Absolute Lymphocytes 2.8 Absolute Monocytes 0.5 Absolute Eosinophils 0.3 Absolute Basophils 0.0 Sodium 137.7 Potassium 4.1 Chloride 101 Carbon Dioxide 27 Anion Gap 10 BUN 8 Creatinine 0.55 Est GFR ( Amer) > 60 Est GFR (Non-Af Amer) > 60 Glucose 216 H Calcium 8.3 L Impressions: Foot X-Ray 08/10/17 04:08 IMPRESSION: Osteomyelitis pattern of the right 5th IP joint. Assessment & Plan - Time Time Spent with patient: 15-24 minutes - Plan Summary Plan Summary: Continue IV antibiotics and daily dressing changes Keep right leg elevated when on bed..
--- NOTE | 2017-08-12 19:18 | Progress Note ---
Provider Note Provider Note: ID Consult Note Asked to review patient's chart by the patient's hospitalist and by Pharmacy. Pt not seen and examined. VS, labs, imaging, and provider notes reviewed. Ms. Becker is a 27 yo woman with PMH including tobacco use, poorly controlled diabetes (last hgba1c 11), and prior diabetic foot infection of a lateral 5th toe wound with osteomyelitis involving the distal phalanx diagnosed in late May 2017. At that time, culture from the toe grew MSSA, cutaneous mayur, and in broth only a sensitive Enterococcus species. She had a PICC line placed and was treated with vancomycin and Levaquin for around 8 weeks. Within a few days after completing treatment, she reported having increased pain associated with worsening erythema and edema in her right foot, along with chills and uncontrolled blood sugars. She presented on 08/10/17 for these complaints. Plain films of her foot showed bone demineralization about the lateral R 5th interphalangeal joint consistent with osteomyelitis. Ray amputation was performed on 08/10; a moderate amount of purulent material was encountered, and the metatarsal head was removed. Intraoperative cultures were obtained and preliminarily show growth of a GNR, Group B Strep, and GPCs in clusters. Currently, the patient is empirically on vancomycin and Rocephin. Recommendations were requested in terms of duration and choice of antibiotics. Impression/Recommendations Polymicrobial diabetic foot infection with osteomyelitis involving the 5th toe - Plain films were consistent with osteomyelitis at the level of the interphalangeal joint. Patient had resection of the phalanges and metatarsal head. If all of the infected bone was resected, the duration of antibiotic therapy for residual skin/soft tissue infection would be shorter, on the order of 1-3 weeks or so, depending on the severity of the infection. If there is concern that there may be some osteomyelitic bone remaining after surgery, then treating for a longer duration of 6 weeks would be appropriate. Recommend discussing with the surgeon what his impression was - whether there is concern for residual infected bone. - For now, continue current empiric therapy with vancomycin and Rocephin. Increase dose of Rocephin to 2 grams daily. Follow up culture results. - Of course, uncontrolled diabetes and smoking are factors that predispose the patient to poor wound healing and need to be addressed in addition to antibiotic and surgical treatment. Naila Light MD [facility] Infectious Diseases pager [phone]
[2017-08-12] MEDS: INSULIN GLARGINE,HUM.REC.ANLOG 1,000 UNIT/10 ML UNIT SUBCUT SCH (22:00)
[2017-08-13] MEDS: NORMAL SALINE 1000 ML 1,000 ML IV PRN ×2 (02:10→22:34)
[2017-08-13] MEDS: VANCOMYCIN HCL 1,000 MG in DEXTROSE 5%-WATER 250 ML IV SCH ×2 (02:11→11:31)
[2017-08-13 05:04] LABS: ABSOLUTE EOSINOPHILS # (AUTO) 0.3 10^3/uL (0.0-0.6); ABSOLUTE LYMPHOCYTES (AUTO) 2.6 10^3/uL (0.5-4.7); ABSOLUTE MONOCYTES (AUTO) 0.6 10^3/uL (0.1-1.4); ABSOLUTE NEUT (AUTO) 3.4 10^3/uL (1.7-8.2); BASOPHILS % (AUTO) 0.4 % (0-2); EOSINOPHILS % (AUTO) 3.6 % (0-6); HEMATOCRIT 30.8 % (36.0-47.0); HEMOGLOBIN 10.5 g/dL (12.0-15.5); MEAN CORPUSCULAR HEMOGLOBIN 26.8 pg (27.0-33.4); MEAN CORPUSCULAR HGB CONC 33.9 g/dL (32.0-36.0); MEAN CORPUSCULAR VOLUME 79 fl (80-97); MONOCYTES % (AUTO) 8.6 % (3-13); PLATELET COUNT 251 10^3/uL (150-450); RED CELL DISTRIBUTION WIDTH 13.3 % (11.5-14.0); SEGMENTED NEUTROPHILS % (AUTO) 49.4 % (42-78); TOTAL CELLS COUNTED % (AUTO) 100 %
[2017-08-13 05:24] LABS: ANION GAP 10 (5-19); BLOOD UREA NITROGEN 9 mg/dL (7-20); CALCIUM 8.4 mg/dL (8.4-10.2); CARBON DIOXIDE 27 mmol/L (22-30); CHLORIDE 100 mmol/L (98-107); GLUCOSE 201 mg/dL (75-110); SODIUM 137.1 mmol/L (137-145)
[2017-08-13] MEDS: MORPHINE SULFATE 10 MG/ML INJ IV PRN ×2 (06:10→12:52)
[2017-08-13] MEDS: HEPARIN SOD (PORCINE) 5,000 UNIT/ML 1 ML SYRINGE SUBCUT SCH ×3 (06:14→22:34)
[2017-08-13 09:35] LABS: VANCOMYCIN,TROUGH 16.2 ug/mL (5.0-20.0)
--- NOTE | 2017-08-13 10:35 | PDOC PROGRESS REPORT ---
Subjective Progress Note for:: 08/13/17 Subjective:: still with pains at operated site and dorsum of foot Reason For Visit: OSTEOMYELITIS, IDDM Physical Exam Vital Signs: Temp Pulse Resp BP Pulse Ox 98.8 F 84 16 102/63 90 L 08/13/17 08:00 08/13/17 08:00 08/13/17 08:00 08/13/17 08:00 08/13/17 08:00 Intake & Output 08/12/17 08/13/17 08/14/17 06:59 06:59 06:59 Intake Total 4375 3688 Output Total 4000 850 Balance 375 2838 Weight 76 kg 76 kg Exam: Wound looks clean and relatively dry but soap drier tender. Still with some redness on the dorsum of right foot with tenderness. Results Laboratory Results: 08/13/17 03:59 08/13/17 03:59 08/13/17 08/13/17 03:59 03:59 WBC 7.0 RBC 3.90 Hgb 10.5 L Hct 30.8 L MCV 79 L MCH 26.8 L MCHC 33.9 RDW 13.3 Plt Count 251 Seg Neutrophils % 49.4 Lymphocytes % 38.0 Monocytes % 8.6 Eosinophils % 3.6 Basophils % 0.4 Absolute Neutrophils 3.4 Absolute Lymphocytes 2.6 Absolute Monocytes 0.6 Absolute Eosinophils 0.3 Absolute Basophils 0.0 Sodium 137.1 Potassium 4.0 Chloride 100 Carbon Dioxide 27 Anion Gap 10 BUN 9 Creatinine 0.58 Est GFR ( Amer) > 60 Est GFR (Non-Af Amer) > 60 Glucose 201 H Calcium 8.4 Impressions: Foot X-Ray 08/10/17 04:08 IMPRESSION: Osteomyelitis pattern of the right 5th IP joint. Assessment & Plan - Time Time Spent with patient: 15-24 minutes - Plan Summary Plan Summary: ID consult noted. It appears that all the osteomyelitic bone has been removed. However, there appears to be some inflammation. Would continue antibiotics for 3 weeks and [facility] up [facility].
[2017-08-13] MEDS: FAMOTIDINE 20 MG TABLET PO SCH ×2 (11:31→22:34)
[2017-08-13] MEDS: NICOTINE 7 MG/24 HR PATCH.TD24 TD SCH (11:31)
[2017-08-13] MEDS: IMIPENEM/CILASTATIN SODIUM 500 MG in NORMAL SALINE 100 ML IV SCH ×2 (11:32→19:14)
[2017-08-13] MEDS: INSULIN LISPRO 100 UNIT/ML 3 ML VIAL SUBCUT PRN ×3 (14:09→22:34)
--- NOTE | 2017-08-13 15:31 | RADIOLOGY REPORT (SQ) ---
EXAM DESCRIPTION: PICC INSERTION; U/S GUIDE FOR VASCULAR ACCESS; FLUORO/CV PLACEMENT COMPLETED DATE/TIME: 08/13/2017 1:33 pm; 08/13/2017 1:34 pm REASON FOR STUDY: will need outpatient IV antibiotics; IV ACCESS; IV ABX COMPARISON: Two-view chest 06/12/2017 FLUOROSCOPY TIME: 26 seconds 1 digital chest radiographs and 1 ultrasound image saved to PACS. TECHNIQUE: Fluoroscopic and ultrasound guided PICC placement. LIMITATIONS: None. PROCEDURE: After written consent and assessment were obtained, the patient was brought into the fluo roscopy room and place supine on the table. Ultrasound evaluation of potential access sites were perf ormed. After successfully identifying a patent left basilic brain, the left arm was prepped and drape d in a sterile fashion along with the ultrasound probe. The entry site was anesthetized with 1% lidoc carlos. A 21 gauge 7 cm needle was advanced through the skin and into the basilic vein under live ultra sound guidance. An ultrasound image was saved to PACS confirming access site. A .018 guide wire was then inserted through the needle and into the venous system. The needle was the removed and an 11 bl alberto scalpel was used to make a 1cm skin incision. A 5 fr peel-away sheath was advanced over the wire and into the venous system. A measurement was then made using the existing wire and live fluoroscopi c guidance. The wire was then removed and the trimmed. The PICC was advanced through the peel-away sh eath and into the venous system. The peel-away sheath was removed and the catheter was adhered to the patients arm with a stat lock. The catheter was then aspirated and flushed and a sterile bandage was placed over the access site. A fluoroscopic spot image was saved to PACS confirming the catheter ti p within the superior vena cava. IMPRESSION: SUCCESSFUL PLACEMENT OF A 5 FR DUAL LUMEN 32 CM PICC IN THE LEFT BASILIC VEIN. COMMENT: Patient medication list reviewed: Yes- Quality ID# 130:Eligible professional attests to doc umenting in the medical record they obtained, updated, or reviewed the patient's current medications. . Quality ID 145: Final reports for procedures using fluoroscopy that document radiation exposure leon paulie, or exposure time and number of fluorographic images (if radiation exposure indices are not avail able) Quality ID #76: The patient was prepped and draped using maximum sterile barrier technique including cap, mask, sterile gown, sterile gloves, a large sterile sheet, hand hygiene, and 2% Chlorhexidine fo r cutaneous antisepsis. When ultrasound is used, sterile ultrasound techniques are followed requiring sterile gel and sterile probes. TECHNICAL DOCUMENTATION: JOB ID: [id number] [employer]- All Rights Reserved rev-08/29 Reading location - IP/workstation name: [facility], [facility]
--- NOTE | 2017-08-13 16:53 | PDOC PROGRESS REPORT ---
Subjective Progress Note for:: 08/13/17 Subjective:: Patient is a 27 year old female with a past medical history of uncontrolled Type 1 DM and tobacco dependence who was admitted for worsening osteomyelitis and cellulitis of a chronic foot wound that failed outpatient IV antibiotics. She is no POD #2 s/p Rt 5th toe amputation. The patient was seen this morning on rounds, she was sleeping but easily abusable. She denied pain or parasthesia in the R foot, states that her foot feels "alright." The wound has been left open, edges , covered with Vaseline gauze and kerlix. Wound culture sensitivities are resulted, plan to adjust antibiotic regimen. Based on ID recommendations, the patient will need outpatient IV antibiotics for approximately 3 weeks. Reason For Visit: OSTEOMYELITIS, IDDM Physical Exam Vital Signs: Temp Pulse Resp BP Pulse Ox 99.5 F 73 18 107/65 90 L 08/13/17 16:00 08/13/17 16:00 08/13/17 16:00 08/13/17 16:00 08/13/17 16:00 Intake & Output 08/12/17 08/13/17 08/14/17 06:59 06:59 06:59 Intake Total 4375 3688 Output Total 4000 850 Balance 375 2838 Weight 76 kg 76 kg General appearance: PRESENT: no acute distress Eye exam: PRESENT: conjunctiva pink, EOMI, PERRLA Mouth exam: PRESENT: moist Teeth exam: PRESENT: poor dentation Neck exam: PRESENT: full ROM Respiratory exam: PRESENT: clear to auscultation jey, symmetrical, unlabored Cardiovascular exam: PRESENT: +S1, +S2 Pulses: PRESENT: normal radial pulses, normal dorsalis pedis pul Vascular exam: PRESENT: normal capillary refill GI/Abdominal exam: PRESENT: normal bowel sounds, soft. ABSENT: tenderness Rectal exam: PRESENT: deferred Extremities exam: PRESENT: full ROM, tenderness - TTP to surgical site. ABSENT : pedal edema Musculoskeletal exam: PRESENT: ambulatory, deformity - Right fifth toe amputation, full ROM Neurological exam: PRESENT: alert, awake, oriented to person, oriented to place , oriented to time, oriented to situation Psychiatric exam: PRESENT: appropriate affect Skin exam: PRESENT: dry, intact, normal color Results Laboratory Results: 08/13/17 03:59 08/13/17 03:59 08/13/17 08/13/17 03:59 03:59 WBC 7.0 RBC 3.90 Hgb 10.5 L Hct 30.8 L MCV 79 L MCH 26.8 L MCHC 33.9 RDW 13.3 Plt Count 251 Seg Neutrophils % 49.4 Lymphocytes % 38.0 Monocytes % 8.6 Eosinophils % 3.6 Basophils % 0.4 Absolute Neutrophils 3.4 Absolute Lymphocytes 2.6 Absolute Monocytes 0.6 Absolute Eosinophils 0.3 Absolute Basophils 0.0 Sodium 137.1 Potassium 4.0 Chloride 100 Carbon Dioxide 27 Anion Gap 10 BUN 9 Creatinine 0.58 Est GFR ( Amer) > 60 Est GFR (Non-Af Amer) > 60 Glucose 201 H Calcium 8.4 Impressions: Foot X-Ray 08/10/17 04:08 IMPRESSION: Osteomyelitis pattern of the right 5th IP joint. Guidance Fluoroscopy 08/13/17 00:00 IMPRESSION: SUCCESSFUL PLACEMENT OF A 5 FR DUAL LUMEN 32 CM PICC IN THE LEFT BASILIC VEIN. Interventional Vascular Procedure 08/13/17 00:00 IMPRESSION: SUCCESSFUL PLACEMENT OF A 5 FR DUAL LUMEN 32 CM PICC IN THE LEFT BASILIC VEIN. PICC Line Insertion 08/13/17 00:00 IMPRESSION: SUCCESSFUL PLACEMENT OF A 5 FR DUAL LUMEN 32 CM PICC IN THE LEFT BASILIC VEIN. Status: Imported from PACS Assessment & Plan - Diagnosis (1) Osteomyelitis of toe of right foot Is this a current diagnosis for this admission?: Yes Plan: POD #2 R 5th toe amputation Dr. Segal, of Surgery, ensured me that there is no residual infected bone left , it was all removed during the procedure. Blood and wound cultures demonstrating polymicrobial growth: GNR, Group B Beta Strep, Gram positive cocci Admit to medical floor on continuous cardiac telemetry. Patient originally placed on vancomycin and Rocephin, switched to ertapenem given polymicrobial resistance. Antiemetics and pain medication as needed Talked to [facility], appreciate their reccomendations. They did state that the patient will likely require 3 weeks of IV antibiotic therapy given her previous history of failure and her noncompliance with diabetes treatment, coupled with her inability to quit smoking. Plan for PICC line placement today and discharge home tomorrow with 19 days of IV antibiotic treatment. (2) DM type 1 (diabetes mellitus, type 1) Qualifiers: Diabetes mellitus complication status: with other specified complication Qualified Code(s): E10.69 - Type 1 diabetes mellitus with other specified complication Is this a current diagnosis for this admission?: Yes Plan: Hemoglobin A1c 11.4%. Has improved since May 2017 (13.1%) Continue IV maintenance fluids. Continue home dose of Lantus 36 units nightly. Consistent carb diet. Accu-Cheks before meals and at bedtime with Humalog for sliding scale coverage. Plan for perioperative educator to meet with the patient prior to discharge. (3) Tobacco dependence Is this a current diagnosis for this admission?: Yes Plan: Smoking cessation is encouraged. Nicotine replacement therapy is provided (4) DVT prophylaxis Is this a current diagnosis for this admission?: Yes Plan: Heparin SC for DVT PPX Encourage early ambulation (5) Anemia Qualifiers: Anemia type: unspecified type Qualified Code(s): D64.9 - Anemia, unspecified Is this a current diagnosis for this admission?: Yes Plan: Hemoglobin decreased to 10.6 following surgery, has stabilized to 11.0. Likely combination of surgical procedure and IVF. No signs of active bleeding - Time Time Spent with patient: 15-24 minutes Medications reviewed and adjusted accordingly: Yes Anticipated discharge: Home Within: within 24 hours - Inpatient Certification Based on my medical assessment, after consideration of the patient's comorbidities, presenting symptoms, or acuity I expect that the services needed warrant INPATIENT care.: Yes I certify that my determination is in accordance with my understanding of Medicare's requirements for reasonable and necessary INPATIENT services [42 CFR 412.3e].: Yes Medical Necessity: Need for IV Antibiotics - Plan Summary Plan Summary: Ultimately, the plan is to discharge the patient home with approximately 3 weeks of IV antibiotics.
--- NOTE | 2017-08-13 18:17 | Progress Note ---
Provider Note Provider Note: ID Consult Note Recommendations regarding antibiotic choice and duration were requested on . Pt not seen and examined. Reviewed chart, including notes, VS, labs, imaging - summarized in prior note on 08/12. Interval events: Post-operatively, the patient has some residual erythema of the foot and tenderness but otherwise appears to be doing well. PICC line was placed. Identification and susceptibility results were updated as showing show growth of 1+ E coli (resistant to amoxicillin/clavulanate, bactrim, cipro, tetracyclines; sensitive to cephalosporins, including cefazolin), 1+ MSSA, and 4 + Group B Strep. Antibiotics were changed from vancomycin/Rocephin to Primaxin. Impression/Recommendations Diabetic foot infection: polymicrobial R 5th toe osteomyelitis, s/p ray resection - Anaerobic culture of the intraoperative specimens are not finalized yet. The patient can continue Primaxin or go back to Rocephin while awaiting finalization of the culture results. Definitive antibiotic recommendations can be made once the cultures are reported as final. - I suspect that IV Rocephin will be sufficient in all likelihood. It is active against the patient's E. coli, MSSA, and Group B Strep. There is limited evidence to support the need to continue anti-anaerobic activity following adequate debridement of the soft tissue, but, regardless, Rocephin will still have activity against anaerobic GPCs. Even if anaerobes are isolated, depending on their identity, Rocephin may still be active. - f/u cx results [place], [facility] Infectious Diseases pager [phone]
[2017-08-13] MEDS: OXYCODONE-ACETAMINOPHEN 5-325 MG TABLET PO PRN (19:15)
[2017-08-13] MEDS: INSULIN GLARGINE,HUM.REC.ANLOG 1,000 UNIT/10 ML UNIT SUBCUT SCH (22:34)
[2017-08-14] MEDS: IMIPENEM/CILASTATIN SODIUM 500 MG in NORMAL SALINE 100 ML IV SCH ×2 (00:13→06:29)
[2017-08-14] MEDS: OXYCODONE-ACETAMINOPHEN 5-325 MG TABLET PO PRN (02:15)
[2017-08-14] MEDS ORDERED: NORMAL SALINE 10 ML SDV (AFTER EACH USE) IV PRN (04:45)
[2017-08-14] MEDS: MORPHINE SULFATE 10 MG/ML INJ IV PRN (06:32)
[2017-08-14] MEDS: HEPARIN SOD (PORCINE) 5,000 UNIT/ML 1 ML SYRINGE SUBCUT SCH (06:34)
[2017-08-14] MEDS ORDERED: NORMAL SALINE 10 ML SDV (SCHEDULED) IV SCH (10:00)
[2017-08-14] MEDS: FAMOTIDINE 20 MG TABLET PO SCH (11:49)
[2017-08-14] MEDS: NICOTINE 7 MG/24 HR PATCH.TD24 TD SCH (11:49)
[2017-08-14] MEDS ORDERED: ERTAPENEM SODIUM 1 GM in NORMAL SALINE 50 ML IV SCH (12:00)
[2017-08-14 13:02] VITALS: BP 107/94
--- NOTE | 2017-08-19 11:56 | PDOC DISCHARGE SUMMARY ---
General - Admit/Disc Date/PCP Admission Date/Primary Care Provider: 08/10/17 06:36 JODIE DIAS MD Discharge Date: 08/14/17 - Discharge Diagnosis (1) Osteomyelitis of toe of right foot Is this a current diagnosis for this admission?: Yes Summary: Osteomyelitis of R 5th toe s/p failed outpatient treatment with levaquin and vancomycin Presented to [facility] with worsening swelling, erythema and pain in her R foot, now post-op R 5th toe amputation Dr. Segal, of Surgery, ensured me that there is no residual infected bone left , it was all removed during the procedure. Blood and wound cultures demonstrating polymicrobial growth: GNR, Group B Beta Strep, Gram positive cocci Admited to medical floor on continuous cardiac telemetry. Patient originally placed on vancomycin and Rocephin, switched to ertapenem given polymicrobial resistance. Plan for 19 days outpatient IV antibiotic therapy Talked to [facility], appreciate their reccomendations. They did state that the patient will likely require 3 weeks of IV antibiotic therapy given her previous history of failure and her noncompliance with diabetes treatment, coupled with her inability to quit smoking. PICC line placed and discharged home with follow up to [facility] as well as 19 days of IV antibiotic treatment. Daily dressing changes to include Vaseline gauze over the incision site and wrap the foot with dry Kerlix (2) DM type 1 (diabetes mellitus, type 1) Is this a current diagnosis for this admission?: Yes Summary: Hemoglobin A1c 11.4%. Has improved since May 2017 (13.1%) Glucose was controlled while inpatient with home dose of Lantus 36 units night and ACHS Humalog for sliding scale coverage. Diabetes management counseling, and it's importance in relation to wound healing , was stressed prior to discharge. Patient states understanding. (3) Tobacco dependence Is this a current diagnosis for this admission?: Yes Summary: Smoking cessation is encouraged. Nicotine replacement therapy provided The importance of smoking cessation, and it's relation to wound healing, was stressed during discharge teaching. Patient stated understanding. (4) DVT prophylaxis Is this a current diagnosis for this admission?: Yes Summary: Heparin SC for DVT PPX while inpatient (5) Anemia Is this a current diagnosis for this admission?: Yes Summary: Hemoglobin decreased to 10.6 following surgery, has stabilized to 11.0. Likely combination of surgical procedure and IVF. No signs of active bleeding No further workup or treatment - Additional Information Resuscitation Status: Full Code Discharge Diet: As Tolerated Discharge Activity: Activity As Tolerated, Balance Activity w/Rest Prescriptions: Ertapenem Sodium [Invanz Inj 1 gm Vial] 1 gm IV DAILY 19 Days #19 vial Home Medications: Insulin Glargine,Hum.rec.anlog [Lantus Insulin 100 Unit/1 ml 10 ml] 38 units SQ QHS 05/20/17 Insulin Lispro [Humalog Insulin (Lispro) 100 unit/mL] 0 unit SUBCUT .SLD SCALE 08/10/17 Ertapenem Sodium [Invanz Inj 1 gm Vial] 1 gm IV DAILY 19 Days #19 vial 08/14/17 History of Present Illness History of Present Illness: RAGHAVENDRA PEREZ is a 27 year old female with a past medical history of insulin- dependent diabetes mellitus and tobacco dependence presented to the emergency department last night with a complaint of right toe pain. She reported that she is seen by Dr. Snider for diabetic foot wound to the right foot. She states that she previously had a PICC line and was on vancomycin. She states that the antibiotic was stopped approximately 2 weeks ago. She reports that beginning 3-4 days ago she began having increased pain to the foot with gradually worsening erythema and edema. She states that she has began having chills but no documented fever, and uncontrolled blood sugars, which prompted her to be evaluated by the emergency department last night. Evaluation in the emergency department reveals a normal white count, mild hyponatremia, and elevated blood glucose of 759. Imaging demonstrated osteomyelitis pattern of the right fifth IP joint. Surgery was consulted and plan to take the patient to the operating room today for amputation of the toe. She is referred to the hospitalist services for admission and management of her diabetes mellitus and osteomyelitis. Hospital Course Hospital Course: as above Physical Exam Vital Signs: Temp Pulse Resp BP Pulse Ox 98.3 F 84 16 107/94 H 92 08/14/17 15:58 08/14/17 15:58 08/14/17 15:58 08/14/17 15:58 08/14/17 15:58 Results Laboratory Results: 08/13/17 03:59 08/13/17 03:59 Impressions: Foot X-Ray 08/10/17 04:08 IMPRESSION: Osteomyelitis pattern of the right 5th IP joint. Guidance Fluoroscopy 08/13/17 00:00 IMPRESSION: SUCCESSFUL PLACEMENT OF A 5 FR DUAL LUMEN 32 CM PICC IN THE LEFT BASILIC VEIN. Interventional Vascular Procedure 08/13/17 00:00 IMPRESSION: SUCCESSFUL PLACEMENT OF A 5 FR DUAL LUMEN 32 CM PICC IN THE LEFT BASILIC VEIN. PICC Line Insertion 08/13/17 00:00 IMPRESSION: SUCCESSFUL PLACEMENT OF A 5 FR DUAL LUMEN 32 CM PICC IN THE LEFT BASILIC VEIN. Status: Imported from PACS Qualifiers - * PATIENT BEING DISCHARGED WITH ANY OF THE FOLLOWING DIAGNOSIS: No Plan Discharge Plan: DISCHARGED HOME WITH 19 DAYS OF IV ERTAPENEM. NEW PICC LINE PLACED ONE DAY PRIOR TO DISCHARGE. PATIENT INSTRUCTED TO FOLLOW UP WITH [facility] ON 08/21/2017. PATIENT IS FOLLOWED BY PMD DR. JAQUAN DIAS. [facility] ORDERED FOR DAILY DRESSING CHANGES, WHICH INCLUDES VASELINE GAUZE COVERING THE INCISION SITE , COVERED WITH 4X4 STERILE GAUZE AND THE FOOT WRAPPED IN DRY KERLIX OR STEVE BANDAGE. A GREAT DEAL OF TIME WAS SPENT COUNSELING THE PATIENT ABOUT SMOKING CESSATION AND DIABETES MANAGEMENT, AND THEIR IMPORTANCE IN REGARDS TO HER WOUND HEALING. Time Spent: Greater than 30 Minutes
== END 2017-08-14 16:58 | disposition home health service (06) | DRG 617 ==
LOC: ER 02:10 → UNDOADMIN 06:36 → EH 06:36 → ICU 12:10 → 4N 08-12 13:39
PROVIDERS: ADMIT Internal Medicine; ATTEND Internal Medicine
PROC: 0Y6X0Z0 Detachment at Right 5th Toe, Complete, Open Approach (ICD-10-PCS; principal; 2017-08-10 10:15)
PROC: 02HV33Z Insertion of Infusion Device into Superior Vena Cava, Percutaneous Approach (ICD-10-PCS; 2017-08-13)
PROC: B548ZZA Ultrasonography of Superior Vena Cava, Guidance (ICD-10-PCS; 2017-08-13)
PROC: B518ZZA Fluoroscopy of Superior Vena Cava, Guidance (ICD-10-PCS; 2017-08-13)
DX: E10.69 Type 1 diabetes mellitus with other specified complication (principal); E87.1 Hypo-osmolality and hyponatremia; M86.171 Other acute osteomyelitis, right ankle and foot; E10.628 Type 1 diabetes mellitus with other skin complications; L03.031 Cellulitis of right toe; E10.65 Type 1 diabetes mellitus with hyperglycemia; D64.9 Anemia, unspecified; B95.1 Streptococcus, group B, as the cause of diseases classified elsewhere; B96.20 Unspecified Escherichia coli [E. coli] as the cause of diseases classified elsewhere; B95.61 Methicillin susceptible Staphylococcus aureus infection as the cause of diseases classified elsewhere; B96.89 Other specified bacterial agents as the cause of diseases classified elsewhere; F17.210 Nicotine dependence, cigarettes, uncomplicated; Z79.4 Long term (current) use of insulin; Z83.3 Family history of diabetes mellitus; Z71.6 Tobacco abuse counseling; Z91.19 Patient's noncompliance with other medical treatment and regimen
CPT/HCPCS: 01480; 36415; 36569; 76937; 77001; 80048; 80202; 81025; 82565; 82962; 83036; 85025; 87040; 87070; 87075; 87077; 87186; 87205; 88305; 88311; 96365; 96375; 99284; J0131; J0696; J0743; J1335; J1642; J1644; J1815; J2250; J2270; J2405; J2704; J3010; J3370; J3490; J7030; J7060

== ENCOUNTER 2017-08-31 19:16 | Emergency (ER) | payer MEDICAID ==
[2017-08-31] MEDS ORDERED: LOPERAMIDE HCL 2 MG CAPSULE PO ONE (20:37)
--- NOTE | 2017-08-31 20:42 | ER Document Report ---
ED Extremity Problem, Lower - General Chief Complaint: Leg Injury Stated Complaint: CAST REMOVAL Time Seen by Provider: 08/31/17 19:59 Mode of Arrival: Ambulatory Information source: Patient Notes: Patient is a 27 year old female with type 1 diabetes who presents to the ER today 1 week post right pinky toe removal after osteomyelitis was diagnosed in the toe. Patient was placed in a cast after surgery and states she was supposed to follow up 3 days ago to have cast removed but did not. Patient is just here for cast removal today. Patient is taking antibiotics. She denies any fevers or chills. TRAVEL OUTSIDE OF THE [place] IN LAST 30 DAYS: No - Related Data Allergies/Adverse Reactions: No Known Allergies Allergy (Verified 08/31/17 19:17) Past Medical History - General Information source: Patient - Social History Smoking Status: Current Every Day Smoker Chew tobacco use (# tins/day): No Frequency of alcohol use: None Drug Abuse: None Family History: DM Patient has suicidal ideation: No Patient has homicidal ideation: No Endocrine Medical History: Reports: Hx Diabetes Mellitus Type 1 Renal/ Medical History: Denies: Hx Peritoneal Dialysis Psychiatric Medical History: Denies: Hx Depression Past Surgical History: Reports: Hx Section, Hx Orthopedic Surgery - R humerus repair, right 5th toe amputation, Other - Surgery on Right arm due to Fracture. Review of Systems - Review of Systems Constitutional: No symptoms reported EENT: No symptoms reported Cardiovascular: No symptoms reported Respiratory: No symptoms reported Gastrointestinal: No symptoms reported Genitourinary: No symptoms reported Female Genitourinary: No symptoms reported Musculoskeletal: See HPI Skin: No symptoms reported Hematologic/Lymphatic: No symptoms reported Neurological/Psychological: No symptoms reported Physical Exam - Vital signs Vitals: Temp Pulse Resp BP Pulse Ox 98.0 F 119 H 18 110/79 98 08/31/17 19:23 08/31/17 19:23 08/31/17 19:23 08/31/17 19:23 08/31/17 19:23 - Notes Notes: PHYSICAL EXAMINATION: GENERAL: Well-appearing and in no acute distress. HEAD: Atraumatic, normocephalic. EYES: Pupils equal round and reactive to light, extraocular movements intact, sclera anicteric, conjunctiva are normal. NECK: Normal range of motion, supple without lymphadenopathy LUNGS: CTAB and equal. No wheezes rales or rhonchi. HEART: Regular rate and rhythm without murmurs is EXTREMITIES: Normal range of motion, no pitting edema. No cyanosis. NEUROLOGICAL: Cranial nerves grossly intact. Normal sensory/motor exams. PSYCH: Normal mood, normal affect. SKIN: Warm, Dry, normal turgor, no drainage, no erythema to area of recently amputated right fifth toe, well healing in appearance Course - Re-evaluation Re-evalutation: 08/31/17 20:41 Cast was removed successfully, wound appears well, packing was removed, wound was dressed and she was told to follow-up with wound care as she was supposed to have done 4 days ago. - Vital Signs Vital signs: Temp Pulse Resp BP Pulse Ox 98.0 F 119 H 18 110/79 98 08/31/17 19:23 08/31/17 19:23 08/31/17 19:23 08/31/17 19:23 08/31/17 19:23 Discharge - Discharge Clinical Impression: Cast removal Condition: Stable Disposition: HOME, SELF-CARE Additional Instructions: Return immediately for any new or worsening symptoms. Follow up with wound care, call tomorrow to make followup appointment. Referrals: JODIE DIAS MD [Primary Care Provider] - Follow up as needed
[2017-08-31 20:53] VITALS: BP 115/81
== END 2017-08-31 20:55 | disposition home or self-care (01) ==
LOC: ER 19:16
DX: Z47.81 Encounter for orthopedic aftercare following surgical amputation (principal); Z89.421 Acquired absence of other right toe(s); E10.9 Type 1 diabetes mellitus without complications; F17.200 Nicotine dependence, unspecified, uncomplicated
CPT/HCPCS: 99282; J3490

== ENCOUNTER 2017-11-29 03:12 | Emergency (ER) | payer MEDICAID ==
[2017-11-29 03:19] VITALS: BP 123/80
[2017-11-29] MEDS ORDERED: CEPHALEXIN 500 MG CAPSULE PO ONE (04:04)
[2017-11-29] MEDS ORDERED: DIPH/PERTUSS(ACELL)/TETANUS VAC/PF 0.5 ML SYR (>=10YO) IM ONE (04:04)
[2017-11-29] MEDS ORDERED: CIPROFLOXACIN HCL 500 MG TABLET PO ONE (04:04)
--- NOTE | 2017-11-29 04:22 | ER Document Report ---
HPI - HPI Patient complains to provider of: right foot injury Pain Level: Denies Context: Patient is a 27-year-old female that comes to the emergency department for chief complaint of stepping on a nail. She is a type I diabetic, on insulin, she states that her tetanus is not up-to-date, she states that the area is slightly tender and she became worried that it might get infected. She stepped on it yesterday. The nail went through her sandal. She denies fever chills, swelling, or any other injuries. She has had a history of MRSA. - CONSTITUTIONAL Constitutional: DENIES: Fever, Chills - EENT EENT: DENIES: Sore Throat, Ear Pain, Eye problems - NEURO Neurology: DENIES: Headache, Weakness, Vision blurred, Dizzinesss / Vertigo - CARDIOVASCULAR Cardiovascular: DENIES: Chest pain - RESPIRATORY Respiratory: DENIES: Trouble Breathing, Coughing - GASTROINTESTINAL Gastrointestinal: DENIES: Abdominal Pain, Black / Bloody Stools - URINARY Urinary: DENIES: Dysuria, Urgency, Frequency - REPRODUCTIVE LMP: na Reproductive: DENIES: : - MUSCULOSKELETAL Musculoskeletal: DENIES: Extremity pain Past Medical History - General Information source: Patient - Social History Smoking Status: Current Every Day Smoker Chew tobacco use (# tins/day): No Frequency of alcohol use: None Drug Abuse: None Lives with: Family Family History: DM Patient has suicidal ideation: No Patient has homicidal ideation: No Endocrine Medical History: Reports: Hx Diabetes Mellitus Type 1 Renal/ Medical History: Denies: Hx Peritoneal Dialysis Psychiatric Medical History: Denies: Hx Depression Past Surgical History: Reports: Hx Section, Hx Orthopedic Surgery - R humerus repair, right 5th toe amputation, Other - Surgery on Right arm due to Fracture. - Immunizations Hx Diphtheria, Pertussis, Tetanus Vaccination: Yes Vertical Provider Document - CONSTITUTIONAL General Appearance: WD/WN, No Apparent Distress - INFECTION CONTROL TRAVEL OUTSIDE OF THE [place] IN LAST 30 DAYS: No - HEENT HEENT: Atraumatic, Normocephalic - NECK Neck: Normal Inspection - RESPIRATORY Respiratory: Breath Sounds Normal, No Respiratory Distress - CARDIOVASCULAR Cardiovascular: Regular Rate, Regular Rhythm - GI/ABDOMEN Gastrointestinal: Abdomen Soft, Abdomen Non-Tender - BACK Back: Normal Inspection - MUSCULOSKELETAL/EXTREMETIES Musculoskeletal/Extremeties: Tender - There is questionable soft tissue swelling over the plantar aspect of the right foot and just underneath the first metatarsal pad, there is a tiny open wound, no current bleeding, no purulent discharge, no erythema, no severe tenderness. Fifth digit amputation. Otherwise unremarkable foot exam with normal pulse, cap refill, sensation. Normal ankle, leg exam. Course - Re-evaluation Re-evalutation: Soft tissue swelling on x-ray without foreign body. No overt evidence of infection although there is some soft tissue swelling on exam. Unfortunately patient is not caring for the wound, she is walking around on it with sandals without a dressing, open, her foot is dirty. Area cleaned, dressed, discussed importance of keeping the area clean to avoid infection especially with her type 1 diabetes and history of toe amputation. She also has a history of MRSA. Will cover for MRSA, staph, strep, and Pseudomonas because of the way that the injury happened and her risk factors. Discussed strict return precautions and close follow-up. Patient states understanding and agreement. - Vital Signs Vital signs: Temp Pulse Resp BP Pulse Ox 97.8 F 100 20 123/80 100 11/29/17 03:18 11/29/17 03:18 11/29/17 03:18 11/29/17 03:18 11/29/17 03:18 - Diagnostic Test Radiology reviewed: Image reviewed, Reports reviewed Discharge - Discharge Clinical Impression: Wound of right foot Condition: Stable Disposition: HOME, SELF-CARE Additional Instructions: There is some swelling but no evidence of infection at this time. However because of your injury, diabetes, and history he will be covered with antibiotics including coverage for MRSA, strep, Pseudomonas. Take medications as prescribed. This seems to be clean, clean with soap and water, apply fresh dressing at least daily, apply topical antibiotic. Follow-up closely with primary care within the next few days. Return immediately for any signs of worsening symptoms including developing or spreading redness, fever, discolored discharge, increased swelling, or any other concerning symptoms. Prescriptions: Cephalexin Monohydrate [Keflex 500 mg Capsule] 500 mg PO QID #28 capsule Ciprofloxacin HCl [Cipro 500 mg Tablet] 500 mg PO BID #14 tablet Sulfamethoxazole/Trimethoprim [Bactrim Ds Tablet] 1 each PO BID #14 tablet Referrals: JODIE DIAS MD [Primary Care Provider] - Follow up as needed
--- NOTE | 2017-11-29 04:23 | RADIOLOGY REPORT (SQ) ---
EXAM DESCRIPTION: XR FOOT 3 OR MORE VIEWS COMPLETED DATE/TME: 11/29/2017 00:00 CLINICAL HISTORY: 27 years Female, puncture wound COMPARISON: 4.29.18 Findings: Amputation of the right fifth toe at the distal right fifth metatarsus, swelling, no radiopaque foreign body. Bones, joints, and soft tissues of the XR R FOOT 3 OR MORE VIEWS appear otherwise intact. IMPRESSION: Swelling. Chronic amputation.
[2017-11-29] MEDS ORDERED: SULFAMETHOXAZOLE/TRIMETHOPRIM 800-160 MG TABLET PO ONE (04:41)
== END 2017-11-29 05:20 | disposition home or self-care (01) ==
LOC: ER 03:12
DX: S91.301A Unspecified open wound, right foot, initial encounter (principal); W45.0XXA Nail entering through skin, initial encounter; E10.9 Type 1 diabetes mellitus without complications; Z86.14 Personal history of Methicillin resistant Staphylococcus aureus infection; Z89.421 Acquired absence of other right toe(s); F17.200 Nicotine dependence, unspecified, uncomplicated
CPT/HCPCS: 99283; 90471; 73630; 90715; J3490 ×2